=== PATIENT | male | born 1990 | race Caucasian/White ===

== ENCOUNTER 2021-02-17 08:47 | Outpatient (REF) | payer BC, SELFPAY ==
[2021-02-17 10:50] LABS: MANUAL DIFF FLAG NO
[2021-02-17 10:52] LABS: Basophils Absolute Auto 0.1 X10*3/uL (0.0-0.2); Basophils Percent Auto 1.4 % (0-2); Eosinophils Absolute Auto 0.2 X10*3/uL (0.0-0.4); Eosinophils Percent Auto 2.6 % (0-4); Hematocrit 44.5 % (42-52); Hemoglobin 15.2 g/dl (14.0-18.0); Imm Gran Abs Auto 0.01 X10*3/uL (0.00-0.03); Imm Gran Pct Auto 0.2 % (0.0-0.4); Lymphocytes Absolute Auto 1.6 X10*3/uL (1.2-4.9); Lymphocytes Percent Auto 28.9 % (20-40); Mean Corpuscular HGB Conc 34.2 g/dl (31.0-36.0); Mean Corpuscular Hemoglobin 31.7 pg (27.0-33.0); Mean Corpuscular Volume 92.9 fL (80-98); Mean Platelet Volume 10.6 fL (9.4-12.4); Monocytes Absolute Auto 0.6 X10*3/uL (0.1-1.2); Monocytes Percent Auto 9.9 % (2-11); Neutrophils Absolute Auto 3.2 X10*3/uL (2.0-8.3); Platelet Count 236 X10*3/uL (160-400); Red Blood Count 4.79 X10*6/uL (4.60-5.80); Red Cell Distribution Width 12.3 % (11.0-16.0); White Blood Count 5.7 X10*3/uL (4.8-10.8)
[2021-02-17 11:47] LABS: Alanine Aminotransferase 131 U/L (0-40); Albumin Level 4.4 g/dL (3.5-5.0); Alkaline Phosphatase 74 U/L (39-117); Anion Gap 11 (12-20); Aspartate Amino Transferase 68 U/L (5-37); Bilirubin Total 0.9 mg/dL (0.0-1.0); Blood Urea Nitrogen 16 mg/dL (9-16); Calcium 9.8 mg/dL (8.4-10.2); Carbon Dioxide 27 mmol/L (22-29); Chloride 106 mmol/L (96-108); Cholesterol 209 mg/dL; Estimated Glomerular Filt Rate > 60; Glucose Fasting 103 mg/dL (60-99); HDL Cholesterol 33 mg/dL; LDL Cholesterol Calculated 116 mg/dl; Potassium 4.6 mmol/L (3.3-5.1); Sodium 139 mmol/L (135-145); Total Protein 7.5 g/dL (6.5-8.0); Triglycerides 301 mg/dL
[2021-02-17 11:49] LABS: TSH reflex Free T4 1.09 uIU/mL (0.32-4.0)
== END 2021-02-17 08:48 | disposition home or self-care (01) ==
LOC: HO.WFDLDS 08:47
PROVIDERS: Visit Provider Family Medicine
DX: Z00.00 Encounter for general adult medical examination without abnormal findings (principal); F41.9 Anxiety disorder, unspecified; L98.9 Disorder of the skin and subcutaneous tissue, unspecified
CPT/HCPCS: 36415; 80053; 80061; 84443; 85025

== ENCOUNTER 2021-03-24 12:45 | Outpatient (REF) | payer BC, SELFPAY ==
[2021-03-24 12:50] VITALS: BMI 41.2
[2021-03-24 12:51] VITALS: BP 141/57; PULSE 71; RESP 16; TEMP 36.7; O2SAT 96
[2021-03-24 13:15] VITALS: BP 148/67; PULSE 70; RESP 16; O2SAT 98
--- NOTE | 2021-03-24 13:16 | P.OP_ITS ---
Operative Note Operative Note Date of Service: 03/24/21 Narrative: Preop diagnosis: Skin lesion, right buttock, likely fibroma Postop diagnosis: As above Procedure: Excision large skin lesion likely fibroma, from the right buttock under local anesthesia Surgeon: Girish Teague MD Patient is a 30-year-old male with a large mass on the buttock on the lower aspect. This measured about 3.5 cm tall and about 3.5 cm in diameter with a stalk. She understood technique of excision under local anesthesia. He was aware of the risks, benefits, and alternatives He was brought to the minor procedure room. He was placed in prone position. A surgical time-out was done. The area of the lesion was prepped and draped. Lidocaine 1% was used for local anesthesia. I made an incision around the base of this lesion using blade 15. And this was carried down through the full- thickness of the skin subcutaneous fat excise the entire lesions sharply. This was sent as specimen. I closed the incision full-thickness nylon 3-0 interrupted sutures. The incision was about 3.5 cm in length. He tolerated the procedure well. There were no complication noted. He was given wound care instructions. He will be seen in the office for removal sutures in about 2 weeks. Estimated blood loss was less than 1 cc.
--- NOTE | 2021-03-24 13:18 | P.BOP_ITS ---
Brief Operative Note Date of Service: 03/24/21 Pre-op diagnosis: Skin lesion, right buttock likely fibroma Post-op diagnosis: same Procedure: Excision of skin lesion right buttock likely fibroma under local anesthesia Surgeon: Girish Teague MD Anesthesia: local Was an Medical Lab Specialist used for this Procedure?: No Estimated blood loss (mL): 1 Pathology: other (Skin lesion likely fibroma) Condition: stable Disposition: other (Home)
== END 2021-03-24 12:46 | disposition home or self-care (01) ==
LOC: HO.MS 12:45
PROVIDERS: PCP Family Medicine; Visit Provider Surgery
PROC: (CPT 11404; principal; 2021-03-24 13:00)
DX: D17.1 Benign lipomatous neoplasm of skin and subcutaneous tissue of trunk (principal)
CPT/HCPCS: 11404; 88304; 88305

== ENCOUNTER → 2021-04-04 09:26 | Outpatient (BNVA) | payer BC, SELFPAY | PROVIDERS: PCP Family Medicine; Referring Provider Family Medicine; Visit Provider Surgery ==

== ENCOUNTER 2021-07-20 17:28 | Outpatient (REF) | payer BC, SELFPAY ==
--- NOTE | ~2021-07-20 | XR_ITS ---
EXAMINATION: XR CHEST CLINICAL INFORMATION: Acute bronchitis. COMPARISON: Chest x-ray April 12, 2016 TECHNIQUE: 2 views of the chest were obtained. FINDINGS: No significant abnormality is noted involving the heart, lungs, mediastinum, bony thorax or soft tissues. XR/XR chest 2V IMPRESSION: Unremarkable examination.
== END 2021-07-20 17:29 | disposition home or self-care (01) ==
LOC: HO.XRAY 17:28
PROVIDERS: PCP Family Medicine; Visit Provider Hospitalist
DX: J20.8 Acute bronchitis due to other specified organisms (principal)
CPT/HCPCS: 71046

== ENCOUNTER 2021-12-24 10:22 | Emergency (ER) | payer OTHER, BC, SELFPAY ==
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
[2021-12-24 10:38] VITALS: BP 126/67; PULSE 60; RESP 14; O2SAT 99; BMI 35.6
[2021-12-24 10:50] VITALS: BP 126/67; PULSE 60; RESP 14; O2SAT 99
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
[2021-12-24 12:00] VITALS: BP 125/45; PULSE 56; RESP 16; O2SAT 99
== END 2021-12-24 12:51 | disposition home or self-care (01) ==
PROVIDERS: Emergency Provider Emergency Medicine; PCP Family Medicine
DX: S13.4XXA Sprain of ligaments of cervical spine, initial encounter (principal); S39.012A Strain of muscle, fascia and tendon of lower back, initial encounter; S46.912A Strain of unspecified muscle, fascia and tendon at shoulder and upper arm level, left arm, initial encounter; V43.52XA Car driver injured in collision with other type car in traffic accident, initial encounter; Y93.9 Activity, unspecified; Y92.410 Unspecified street and highway as the place of occurrence of the external cause; Y99.9 Unspecified external cause status
CPT/HCPCS: 70450; 72072; 72125; 73030; 99284

== ENCOUNTER → 2022-12-11 14:37 | Outpatient (BNVA) | payer BC, SELFPAY | PROVIDERS: PCP Hospitalist; Visit Provider Nurse Practitioner Family | DX: Z13.89 Encounter for screening for other disorder (principal) ==

== ENCOUNTER 2023-03-29 12:41 | Outpatient (AMB) | payer BC, SELFPAY ==
--- NOTE | 2023-03-29 12:57 | A.OFFVIS_ITS ---
Intake Intake Visit Reasons: vasectomy Intake Note: Patient presents today for a follow-up on Vasectomy: Meds- None Allergies to Antibiotic- No Known Allergies Blood Thinner- None Feather Separator Required: No Accompanied by: Self / Same As Patient Allergies No Known Allergies Allergy (Verified 12/11/22 14:52) HPI HPI Comments History of Present Illness Details Yoan is a pleasant 32 year old male patient of Dr. Martinez. He presents to the office today for - vasectomy procedure Vasectomy procedure The patient presents for vasectomy consultation.? He is currently He has fathered -? 1 child The youngest child is - she is 6 months old His partner is aware and permissive for a vasectomy Current form of control is rhythm Current employment is [employer] The vasectomy may be complicated due to a history of no complicating issues and no known history of procedures in the past [facility] Medical History Fibroma Skin lesion of lower extremity Family History Father Colon polyps Social History Alcohol intake: never Patient Tobacco Use Status: Never used Tobacco Years Smoked: on occasion. 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 Preoperative and postoperative instructions were provided to the patient. The patient has transportation to home identified at the completion of the procedure. Anti-anxiolytic prescription medication had been taken after consent verification and all questions answered. Tylenol with Codeine pain medication was also provided. The penis was elevated using a rubber band that was attached to the patient's shirt. Both vasa were palpated through the skin using a 3 finger technique and the penoscrotal junction was prepped with Betadine. After Betadine application the left vas was elevated using a 3 finger grasping technique. 1% lidocaine was used to create a subdermal bubble. Approximately 2 minutes were allowed to for local anesthetic uptake. Further anesthetic was then advanced using the 25-gauge needle along the vasa in a proximal fashion. Using the sharp spreading instrument the scrotum was spread longitudinally in line with the vasa. The vasa was elevated from the scrotum using a ring clamp. Care was taken to elevate the superior portion of the vas. Using the sharp spreading instrument the vasal sheath was removed from the covering of this segment of the vas. A fresh knife blade was used to partially divide the vasal sheath and to strip the vasal sheath from the vasa. The vasa was grasped with an Addson forcep and elevated from the incision. The ring clamp was placed so it grasped the elevated vas. The vasal sheath was dissected from the vaas in a proximal and distal fashion. This allowed the blood vessels of the vasa to retract from the vasa. Using the battery-powered cautery a partial division was made in the proximal vas. The battery-powered cautery was used to cauterize the proximal end of the vas. This was then cut and allowed to retract into the vasal sheath. A 4.0 chromic was placed on the vasal sheath to create a fascial interposition. The distal portion of the vas was then cut in order to obtain a segment of vasa. The vasa were allowed to retract back into the scrotum. A small snap was then u sed to approximate the skin edges. A similar procedure was repeated on the right side. He tolerated the procedure well. Triple antibiotic was applied. A gauze was applied. An ice pack was applied to assist with minimizing swelling. Postoperative instructions were confirmed. He understands the need to continue to use control methods. A semen sample should be brought for inspection under the microscope in 10-12 weeks. CPT 60689 94011 - Vasectomy Assessment & Plan Assessment & Plan (1) Anxiety about health: Code(s): F41.8 - Other specified anxiety disorders Plan Three month follow-up semen Coding Level of Care Code Procedure Only Diagnoses Anxiety about health F41.8 CPT Codes Office Procedure - CPT: 91644 - Vasectomy ([id number])
== END 2023-03-29 14:30 | disposition home or self-care (01) ==
PROVIDERS: PCP Hospitalist; Visit Provider Urology
DX: Z30.2 Encounter for sterilization (principal); F41.8 Other specified anxiety disorders
CPT/HCPCS: 55250

== ENCOUNTER → 2023-03-29 12:41 | Outpatient (BNVA) | payer BC, SELFPAY | PROVIDERS: PCP Hospitalist; Visit Provider Urology | DX: Z30.2 Encounter for sterilization (principal); F41.8 Other specified anxiety disorders | CPT/HCPCS: 55250 ==

== ENCOUNTER 2023-07-31 14:26 | Outpatient (AMB) | payer BC, SELFPAY ==
--- NOTE | 2023-07-31 14:37 | A.OFFVIS_ITS ---
Intake Intake Visit Reasons: 3m/seman analysis Intake Note: Patient is Present for Follow Up Semen analysis Allergies No Known Allergies Allergy (Verified 12/11/22 14:52) HPI HPI Comments History of Present Illness Details Yoan is a pleasant 32 year old male patient of Dr. Martinez. He presents to the office today for - vasectomy follow-up No sperm seen on high-powered field examination Minimal issues following procedure Effective control established Vasectomy follow-up The patient presents for vasectomy follow-up.? He is currently He has fathered -? 1 child The youngest child is - she is 6 months old His partner is aware and permissive for a vasectomy Current form of control is rhythm Current employment is [employer] The vasectomy may be complicated due to a history of no complicating issues and no known history of procedures in the past [facility] Medical History Fibroma Skin lesion of lower extremity Family History Father Colon polyps Alcohol intake: never Patient Tobacco Use Status: Never used Tobacco Years Smoked: on occasion. 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 Review of Systems Const Denies chills and Denies fever(s) Card Reports no additional complaints and Denies syncope Resp Denies cough GI Denies abdominal pain and Denies heartburn Reports as per HPI and Denies change in libido Neuro Denies syncope Psych Denies change in libido Endo Denies change in libido Physical Exam Const General: cooperative, healthy appearing, comfortable and no acute distress Orientation/consciousness: patient oriented x3 HEENT Face and sinus: Yes normal facial exam Mouth: moist mucous membranes Neck Neck: Yes normal visual inspection, Yes full ROM and Yes trachea midline Chest Chest palpation & inspection: normal inspection of the chest Resp Effort & Inspection: normal respiratory effort, able to speak in complete sentences and no respiratory distress GI Inspection: Yes normal to inspection Back/Spine/Pelvis Cervical Spine: normal cervical lordosis Thoracic/Lumbar Spine: thoracic and lumbar spine normal to inspection Skin General skin exam: no rashes or lesions noted Neuro General: patient oriented x3, gait normal, tone normal and moves all extremities Extrem General: Yes normal to inspection and Yes capillary refill normal Assessment & Plan Assessment & Plan (1) Anxiety about health: Code(s): F41.8 - Other specified anxiety disorders Plan P.r.n. follow-up Patient Instructions: Imaging studies, laboratory and physical exam results were discussed and reviewed in detail. No major barriers to patient understanding were identified. An opportunity to ask questions regarding the treatment plan was provided. All questions were answered. The patient expressed understanding and agreement with the above treatment plan. The patient is aware they should contact our office by phone for worsening of their current condition or the appearance of new urologic symptoms. Compliance is encouraged with any medications and followup testing that is ordered. It is a privilege to participate in the urologic care of your patient. If you have any questions or concerns regarding treatment for the above conditions, or other urologic issues, please do not hesitate to contact me. The office telephone contact is [phone]. This note is constructed using voice recognition software. While every effort has been made to ensure accuracy hand scraper errors may have been included. Yours sincerely, Dr Anibal Birmingham MD, [facility] - Urology Providers of Expert, Compassionate Care for the Genitourinary System Coding Level of Care Code Est Pt Level 3 (09152) Diagnoses Anxiety about health F41.8
== END 2023-07-31 14:50 | disposition home or self-care (01) ==
PROVIDERS: PCP Hospitalist; Visit Provider Urology
DX: F41.8 Other specified anxiety disorders (principal)
CPT/HCPCS: 99213

== ENCOUNTER → 2023-07-31 14:26 | Outpatient (BNVA) | payer BC, SELFPAY | PROVIDERS: PCP Hospitalist; Visit Provider Urology ==

== ENCOUNTER 2024-07-03 11:23 | Outpatient (AMB) | payer BC, SELFPAY ==
--- NOTE | 2024-07-03 11:36 | MHC.PC.OV ---
Vital Signs 07/03/24 11:40 Height 6 ft 3 in Weight 331 lb BMI 41.4 BP 143/82 H Blood Pressure Location Rt brachial Position Sitting Respiration 16 Pulse 89 Pulse Source Pulse Oximeter Temp 99.0 F Temp Source Temporal Artery Scan Pulse Oximetry (%) 97 Oxygen Delivery Method Room Air Intake Visit Reasons: LOW TESTOSTERONE SYMPTOMS Intake Note: low testosterone symptoms low energy and sex drive gaining weight and not motived to go to the gym anymore pt did do a home test came back as 300 for testosterone levels Allergies No Known Allergies Allergy (Verified 07/03/24 11:37) Tobacco use date assessed: 11/29/22 HPI LOW TESTOSTERONE SYMPTOMS HPI Details 33 y/o male presents today with complaints of fatigue, low sex drive, weight gain. Notes he had tested in the 300s for testosterone levels using a home test. Notes loss of motivation towards eating a healthier diet and going to the gym. He reports back pain that wraps around his buttocks. [facility] Medical History Fibroma Skin lesion of lower extremity Family History Father Colon polyps Social History Alcohol intake: never Patient Tobacco Use Status: Never used Tobacco Years Smoked: on occasion. Current occupational status: employed Current occupation: [employer] Questionnaire PHQ-9 Over the last 2 weeks, how often have you been bothered by any of the following problems? 1. Little interest or pleasure in doing things: not at all 2. Feeling down, depressed, or hopeless: not at all 3. Trouble falling or staying asleep, or sleeping too much: not at all 4. Feeling tired or having little energy: more than half the days 5. Poor appetite or overeating: several days 6. Feeling bad about yourself - or that you are a failure or have let yourself or your family down: several days 7. Trouble concentrating on things, such as reading the newspaper or watching television: not at all 8. Moving or speaking so slowly that other people could have noticed. Or the opposite - being so fidgety or restless that you have been moving around a lot more than usual: not at all 9. Thoughts that you would be better off or of hurting yourself in some way: not at all Total score: 4 Depression Screening Interpretation: Negative Depression Screening Done: Yes 93617 - PHQ-9 Billing: Yes Source: Developed by Drs. Bhaskar Ayon, Lesa Fisher, Rashel Field and colleagues, with an educational neal from [employer]. Thrive Questionnaire I am a: Patient What is your living situation today?: I have a steady place to live Within the past 12 months, did the food you bought not last and you didn't have the money to get more?: Never true Within the past 12 months, did you worry whether your food would run out before you got money to buy more?: Never true Do you have trouble paying for medicines?: No Do you have trouble getting transportation to medical appointments?: No Do you have trouble paying your heating and electricity bill?: No Do you have trouble taking care of your child, family member or friend?: No Do you have trouble with day-to-day activities such as bathing, preparing meals, shopping, managing finances, etc.?: No Are you currently unemployed and looking for a job?: No Are you interested in more education?: No Please select the resources that you would like help with: None Currently or been in a relationship where the following occur: No concerns reported THRIVE Score: 0 AUDIT C Alcohol Use Questionnaire (AUDIT-C) 1. How often do you have a drink containing alcohol?: 2-4 times a month 2. How many drinks containing alcohol do you have on a typical day when you are drinking?: 7 to 9 3. How often do you have six or more drinks on one occasion?: Less than monthly Total Score: 6 XIOMARA-7 AMB Questionnaire XIOMARA-7 Feeling nervous, anxious, or on edge: 2 = More than half the days Not being able to stop or control worryin = Several days Worrying too much about different things: 1 = Several days Trouble relaxin = Several days Being so restless that it is hard to sit still: 0 = Not at all Becoming easily annoyed or irritable: 0 = Not at all Feeling afraid as if something awful might happen: 1 = Several days Total XIOMARA-7 score (0-4 normal; 5-9 mild; 10-14 moderate; 15-21 severe): 6 Source: Developed by Drs. Bhaskar Ayon, Lesa Fisher, Rashel Field and colleagues, with an educational neal from [employer]. XIOMARA-7 Assessment Billing XIOMARA-7 Assessment Tool: XIOMARA-7 Assessment 91444 Physical exam (Primary Care) Vital Signs: Last Vital Signs Temp 99.0 F 07/03/24 11:40 Pulse 89 07/03/24 11:40 Resp 16 07/03/24 11:40 BP 143/82 H 07/03/24 11:40 Pulse Ox 97 07/03/24 11:40 Oxygen Delivery Method Room Air 07/03/24 11:40 BMI result Body Mass Index 41.4 Tobacco/Smoking Status: Tobacco use Status Tobacco use date assessed 11/29/22 07/03/24 11:48 Patient Tobacco Use Status Never used Tobacco 07/03/24 11:48 PHQ-9: PHQ-9 Score PHQ-9: Total score 4 07/03/24 11:48 Depression Screening Interpretation: Negative Currently or been in a relationship where the following occur: No concerns reported Coding Level of Care Code Est Pt Level 4 (31791) Diagnoses Fatigue R53.83 Hypersomnolence G47.10 Back pain M54.9 Additional Codes XIOMARA-7 Assessment Billing - XIOMARA-7 Assessment Tool: XIOMARA-7 Assessment 78336 ([id number]) Assessment & Plan Assessment & Plan (1) Fatigue: Code(s): R53.83 - Other fatigue Category: Medical Plan: Fatigue,?hypersomnolence,?poor?motivation, oversleeping Will?check?labs?including?thyroid,?testosterone?and?CBC Will?also?refer?to?Sleep?Medicine?for?sleep?study Follow-up?to?discuss?next?steps?in?4-6?weeks (2) Hypersomnolence: Code(s): G47.10 - Hypersomnia, unspecified Category: Medical Plan: As?above,?referred?to?Sleep?Med (3) Back pain: Code(s): M54.9 - Dorsalgia, unspecified Category: Medical Plan: Back?discomfort?that?radiates?into?buttocks?and?also?around?lower?abdomen?at?hypogastric?region Encouraged?good?body?mechanics,?ice/heat?and?NSAIDs?as?tolerated If?worsening?or?not?improving?he?will?let?me?know?and?would?consider?imaging,?physical?therapy?and?or?referral Plan Screening?equivocal?for?anxiety/depression?and?his?symptoms?can?be?due?to?mood?disorder.??We?can?discuss?this?as?well?at?next?visit?if?no?other?cause?is?found Orders: Orders Comprehensive Met. Panel Today R53.83 - Other fatigue TSH reflex Free T4 Today R53.83 - Other fatigue, Z00.00 - Encounter for general adult medical examination without abnormal findings UA and rflx microscopic Today R53.83 - Other fatigue, Z00.00 - Encounter for general adult medical examination without abnormal findings Complete Blood Count Auto Diff Today R53.83 - Other fatigue, Z00.00 - Encounter for general adult medical examination without abnormal findings Testosterone, Free/Total Today R53.83 - Other fatigue Referrals Sleep Medicine Referral G47.10 - Hypersomnia, unspecified
[2024-07-03 11:40] VITALS: BP 143/82; PULSE 89; RESP 16; TEMP 37.2; O2SAT 97; BMI 41.4
== END 2024-07-03 12:26 | disposition home or self-care (01) ==
PROVIDERS: PCP Family Medicine; Visit Provider Family Medicine
DX: R53.83 Other fatigue (principal); G47.10 Hypersomnia, unspecified; M54.9 Dorsalgia, unspecified

== ENCOUNTER → 2024-07-03 11:23 | Outpatient (BNVA) | payer BC, SELFPAY | PROVIDERS: PCP Hospitalist; Visit Provider Family Medicine | DX: R53.83 Other fatigue (principal); G47.10 Hypersomnia, unspecified; M54.9 Dorsalgia, unspecified | CPT/HCPCS: 96127 ==

== ENCOUNTER 2024-07-28 08:15 | Outpatient (REF) | payer BC, SELFPAY ==
[2024-07-28 11:28] LABS: MANUAL DIFF FLAG NO
[2024-07-28 11:56] LABS: Basophils Absolute Auto 0.1 X10*3/uL (0.0-0.2); Basophils Percent Auto 1.6 % (0-2); Eosinophils Absolute Auto 0.3 X10*3/uL (0.0-0.4); Eosinophils Percent Auto 4.5 % (0-4); Hematocrit 46.1 % (42.0-52.0); Hemoglobin 15.7 g/dl (14.0-18.0); Imm Gran Abs Auto 0.02 X10*3/uL (0.00-0.03); Imm Gran Pct Auto 0.4 % (0.0-0.4); Lymphocytes Absolute Auto 1.2 X10*3/uL (1.2-4.9); Mean Corpuscular HGB Conc 34.1 g/dl (31.0-36.0); Mean Corpuscular Hemoglobin 31.3 pg (27.0-33.0); Mean Corpuscular Volume 91.8 fL (80.0-98.0); Mean Platelet Volume 11.5 fL (9.4-12.4); Monocytes Absolute Auto 0.6 X10*3/uL (0.1-1.2); Monocytes Percent Auto 10.1 % (2-11); Neutrophils Absolute Auto 3.5 x10*3/uL (2.0-8.3); Neutrophils Percent Auto 62.4 % (45-73); Platelet Count 246 X10*3/uL (160-400); Red Blood Count 5.02 X10*6/uL (4.60-5.80); Red Cell Distribution Width 12.4 % (11.0-16.0); White Blood Count 5.5 X10*3/uL (4.8-10.8)
[2024-07-28 12:23] LABS: Alanine Aminotransferase 98 U/L (0-40); Albumin Level 4.3 g/dL (3.5-5.0); Alkaline Phosphatase 64 U/L (39-117); Anion Gap 12 (12-20); Aspartate Amino Transferase 47 U/L (5-37); Bilirubin Total 0.8 mg/dL (0.0-1.0); Blood Urea Nitrogen 15 mg/dL (9-16); Calcium 9.2 mg/dL (8.4-10.2); Carbon Dioxide 25 mmol/L (22-29); Chloride 107 mmol/L (96-108); Estimated Glomerular Filt Rate > 60; Glucose Random 99 mg/dL (60-115); Potassium 4.1 mmol/L (3.3-5.1); Sodium 140 mmol/L (135-145); Total Protein 7.6 g/dL (6.5-8.0)
[2024-07-28 12:49] LABS: TSH reflex Free T4 1.73 uIU/mL (0.32-4.0)
[2024-07-28 14:15] LABS: Appearance Urine Turbid; Color Urine Dark Yellow; Glucose Urine UA Negative (Negative); Leukocyte Esterase Urine Negative (Negative); Nitrite Urine Negative (Negative); PH 5.5 (5.0-9.0); Specific Gravity - Urine >= 1.030 (1.005-1.025); Urine Blood Negative (Negative); Urine Ketones Negative (Negative); Urine Protein Trace mg/dL (Neg-Trace)
[2024-08-01 18:18] LABS: Testosterone, Free 77.7 pg/mL (35.0-155.0); Testosterone, Total 444 ng/dL (250-1100)
== END 2024-07-28 08:16 | disposition home or self-care (01) ==
LOC: HO.WFDLDS 08:15
PROVIDERS: Visit Provider Family Medicine
DX: Z00.00 Encounter for general adult medical examination without abnormal findings (principal); R53.83 Other fatigue
CPT/HCPCS: 36415; 80053; 81003; 84402; 84403; 84443; 85025

== ENCOUNTER 2024-10-28 15:49 | Outpatient (AMB) | payer BC, SELFPAY ==
--- NOTE | 2024-10-28 16:10 | A.OFFPC_ITS ---
Vital Signs 10/28/24 16:15 Height 6 ft 3 in Weight 293 lb BMI 36.6 BP 110/68 Blood Pressure Location Lt brachial Position Sitting Respiration 14 Pulse 95 Pulse Source Pulse Oximeter Temp 98.8 F Temp Source Oral Pulse Oximetry (%) 95 Oxygen Delivery Method Room Air Intake Visit Reasons: Annual PE Intake Note: annual and pt would like to discuss a cough he has had for a few years with no resolution Manager Hospital Required: No Allergies No Known Allergies Allergy (Verified 10/28/24 16:11) Medication List - Last Reconciled 10/28/24 by Fabiano Becker MD albuterol sulfate 90 mcg/actuation (Proair Digihaler) 1 inh inhalation Q4-6H PRN 30 days omeprazole 40 mg PO DAILY 30 days Tobacco use date assessed: 10/28/24 Dental Screening Dental Screen Date: 10/28/24 Did you have a dental visit in the last 12 months?: Yes Did you have a dental problem in the last 6 months where you did not have access to dental care?: No Was dental information given to patient?: No HPI Annual PE HPI Details 34 y/o male presents for a CPE with f/u labs and health maintenance. Labs drawn 07/28/24. Reviewed labs with pt. Elevated liver enzymes - AST 47, ALT 98. Has had complaints of fatigue. Has complaints of a dry cough, 6 to 7 years. PFSH Medical History Fibroma Skin lesion of lower extremity Family History Father Colon polyps Social History Housing: House Alcohol intake: never Patient Tobacco Use Status: Never used Tobacco Years Smoked: on occasion. 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 1. Little interest or pleasure in doing things: not at all 2. Feeling down, depressed, or hopeless: not at all 3. Trouble falling or staying asleep, or sleeping too much: not at all 4. Feeling tired or having little energy: nearly every day 5. Poor appetite or overeating: not at all 6. Feeling bad about yourself - or that you are a failure or have let yourself or your family down: not at all 7. Trouble concentrating on things, such as reading the newspaper or watching television: not at all 8. Moving or speaking so slowly that other people could have noticed. Or the opposite - being so fidgety or restless that you have been moving around a lot more than usual: not at all 9. Thoughts that you would be better off or of hurting yourself in some way: not at all Total score: 3 Depression Screening Interpretation: Negative Depression Screening Done: Yes 24351 - PHQ-9 Billing: Yes Source: Developed by Drs. Bhaskar Ayon, Lesa Fisher, Rashel Field and colleagues, with an educational neal from [employer]. Thrive Questionnaire Date Thrive assessed: 10/28/24 I am a: Patient What is your living situation today?: I have a steady place to live Within the past 12 months, did the food you bought not last and you didn't have the money to get more?: Never true Within the past 12 months, did you worry whether your food would run out before you got money to buy more?: Never true Do you have trouble paying for medicines?: No Do you have trouble getting transportation to medical appointments?: No Do you have trouble paying your heating and electricity bill?: No Do you have trouble taking care of your child, family member or friend?: No Do you have trouble with day-to-day activities such as bathing, preparing meals, shopping, managing finances, etc.?: No Are you currently unemployed and looking for a job?: No Are you interested in more education?: No Please select the resources that you would like help with: None Currently or been in a relationship where the following occur: No concerns repor jean THRIVE Score: 0 AUDIT C Alcohol Use Questionnaire (AUDIT-C) 1. How often do you have a drink containing alcohol?: Monthly or less 2. How many drinks containing alcohol do you have on a typical day when you are drinking?: 3 or 4 3. How often do you have six or more drinks on one occasion?: Less than monthly Total Score: 3 Score Reviewed/Action Taken: Yes XIOMARA-7 AMB Questionnaire XIOMARA-7 Date XIOMARA - 7 assessed: 10/28/24 Feeling nervous, anxious, or on edge: 1 = Several days Not being able to stop or control worryin = Several days Worrying too much about different things: 1 = Several days Trouble relaxin = Several days Being so restless that it is hard to sit still: 0 = Not at all Becoming easily annoyed or irritable: 1 = Several days Feeling afraid as if something awful might happen: 0 = Not at all Total XIOMARA-7 score (0-4 normal; 5-9 mild; 10-14 moderate; 15-21 severe): 5 Source: Developed by Drs. Bhaskar Ayon, Lesa Fisher, Rashel Field and colleagues, with an educational neal from [employer]. XIOMARA-7 Assessment Billing XIOMARA-7 Assessment Tool: XIOMARA-7 Assessment 77825 Review of Systems Const Reports fatigue, Denies headache(s) and Denies weakness Eyes Denies change in vision ENT Denies dizziness, Denies headache(s), Denies hearing loss, Denies nasal congestion, Denies sinus pain, Denies sinus pressure and Denies sore throat Card Denies chest pain, Denies lightheadedness, Denies dyspnea and Denies other (palpitations) Resp Reports cough, Denies dyspnea and Denies wheezing GI Denies abdominal pain, Denies melena, Denies hematochezia, Denies change in bowel habits, Denies dyspepsia and Denies nausea Denies hematuria and Denies dysuria Musc Denies abnormal gait, Denies myalgias, Denies arthralgias, Denies numbness and Denies tingling Skin/Breast Denies rash, Denies unusual bruising and Denies wounds Neuro Denies abnormal gait, Denies dizziness, Denies headache(s), Denies memory loss, Denies numbness, Denies Sensory deficit (Neuro), Denies tingling and Denies weakness Psych Denies anxiety, Denies depression and Denies memory loss Endo Reports fatigue Freddy/Lymph Denies easy bleeding and Denies easy bruising Aller/Immun Denies wheezing Physical exam (Primary Care) Vital Signs: Last Vital Signs Temp 98.8 F 10/28/24 16:15 Pulse 95 10/28/24 16:15 Resp 14 10/28/24 16:15 BP 110/68 10/28/24 16:15 Pulse Ox 95 10/28/24 16:15 Oxygen Delivery Method Room Air 10/28/24 16:15 BMI result Body Mass Index 36.6 Tobacco/Smoking Status: Tobacco use Status Tobacco use date assessed 10/28/24 10/28/24 16:20 Patient Tobacco Use Status Never used Tobacco 10/28/24 16:11 e-Cigarette/Vaping Use Never Used 10/28/24 16:20 PHQ-9: PHQ-9 Score PHQ-9: Total score 3 10/28/24 16:54 Depression Screening Interpretation: Negative Thrive Assessment: Date of Thrive Assessment Date Thrive assessed 10/28/24 10/28/24 16:20 Currently or been in a relationship where the following occur: No concerns reported Const General: no acute distress, well developed, alert and awake Nutritional Appearance: well nourished Orientation/consciousness: patient oriented x3 HENMT Head: Yes normocephalic and Yes atraumatic Ears: hearing grossly normal bilaterally and TM's normal bilaterally General nose exam: Normal external nose present and Normal nares present Mouth: Normal oral and palatal mucosa present and moist mucous membranes Teeth and gingiva: dentition normal Throat: Yes posterior oropharynx normal Eyes General: appearance normal, both eyes and all related structures Pupils: Equal, round and reactive pupils present and Pupil accommodation reflex normal EOM: EOMs intact bilaterally Neck Neck: Yes normal visual inspection, Yes no lymphadenopathy and Yes trachea midline Thyroid: Thyroid normal Carotids: no bruits Lymphatic: no lymphadenopathy noted Chest Chest palpation & inspection: normal inspection of the chest Resp Effort & Inspection: normal respiratory effort Auscultation: clear to auscultation bilaterally Cardio Rate: regular rate Rhythm: regular rhythm Heart sounds: S1 normal heart sound present, S2 normal heart sound present, no gallops, no murmurs and no rubs Bruits: no abdominal aortic bruits and no carotid bruits GI Palpation (GI): No Abdominal aortic bruit present, Soft to palpation, nontender, No hepatosplenomegaly present and No Rebound tenderness present Auscultation: normal bowel sounds General: Yes no CVA tenderness Back/Spine/Pelvis Back: no CVA tenderness Cervical Spine: cervical ROM normal and No Cervical spine tenderness Thoracic/Lumbar Spine: thoraco-lumbar ROM normal, No pain with thoraco-lumbar ROM, No thoracic spinal tenderness and No lumbar spinal tenderness Skin Lesions: no lesions Rashes: no rashes Trauma: no lacerations or abrasions Wounds: no wounds Nails: normal Neuro General: patient oriented x3 Cranial nerves: Yes Equal, round and reactive pupils present Cognition (Neuro): normal cognition Gait exam (Neuro): Normal gait present Motor exam (neuro): 5/5 motor strength present throughout Sensory Exam: No Sensory deficit (Neuro) Deep tendon reflexes (DTR's): Right patellar reflex intensity grade: 2+ and Left patellar reflex intensity grade: 2+ Extrem General: Yes normal to inspection and No edema Psych Appearance: grossly normal Affect: normal affect Attitude: cooperative Thought process: Normal thought process present Coding Level of Care Code Est Pt Level 3 (01450) Est Pt Prev Care 18-39y(93303) Diagnoses Adult general medical exam Z00.00 Elevated liver enzymes R74.8 Fatigue R53.83 Cough R05.9 Additional Codes XIOMARA-7 Assessment Billing - XIOMARA-7 Assessment Tool: XIOMARA-7 Assessment 75552 ([id number]) PHQ-9 - 75918 - PHQ-9 Billing: Yes ([id number]) Assessment & Plan Assessment & Plan (1) Adult general medical exam: Code(s): Z00.00 - Encounter for general adult medical examination without abnormal findings Category: Medical Plan: 34-year-old?male?presents?for?complete?physical?exam (2) Elevated liver enzymes: Code(s): R74.8 - Abnormal levels of other serum enzymes Category: Medical Plan: Ongoing?elevated?liver?enzymes. Encouraged?weight?loss We?will?continue?to?monitor?periodically (3) Fatigue: Code(s): R53.83 - Other fatigue Category: Medical Plan: Ongoing?fatigue. CBC,?thyroid?hormone?levels?and?testosterone?levels?are?normal Had?referred?to?Sleep?Medicine.??Patient?says he? was?not?able?to?follow?through?on?the?appointment Will?ask?the?office?to?get?him?rescheduled. (4) Cough: Code(s): R05.9 - Cough, unspecified Category: Medical Plan: Patient?notes?longstanding?cough?for?years He?says?this?has?been?worked?up?previously Unclear?underlying?cause Possible?cough?variant?asthma, possible?GERD?with?microaspiration, possible?allergy?or?irritant. He?has?used?an?inhaler?in?the?past?and?I?will?renew?this?for?now.??May?need ?PFTs?and?or?referral?to?Pulmonary?Medicine He?will?try?empiric?omeprazole Will?get?a?chest?x-ray Follow-up?in?about?a?month?to?determine?next?steps Orders: Orders XR chest 2V Today R05.9 - Cough, unspecified Medications: New albuterol sulfate 90 mcg/actuation (Proair Digihaler) 1 inh inhalation Q4-6H 30 days PRN 1 ea 1RF shortness of breath or wheezing omeprazole 40 mg PO DAILY 30 days 30 caps 1RF
[2024-10-28 16:15] VITALS: BP 110/68; PULSE 95; RESP 14; TEMP 37.1; O2SAT 95; BMI 36.6
== END 2024-10-28 17:09 | disposition home or self-care (01) ==
PROVIDERS: PCP Family Medicine; Visit Provider Family Medicine
DX: Z00.00 Encounter for general adult medical examination without abnormal findings (principal); R74.8 Abnormal levels of other serum enzymes; R53.83 Other fatigue; R05.9 Cough, unspecified

== ENCOUNTER → 2024-10-28 15:49 | Outpatient (BNVA) | payer BC, SELFPAY | PROVIDERS: PCP Hospitalist; Visit Provider Family Medicine | DX: Z00.00 Encounter for general adult medical examination without abnormal findings (principal); R74.8 Abnormal levels of other serum enzymes; R53.83 Other fatigue; R05.9 Cough, unspecified | CPT/HCPCS: 96127 ==

== ENCOUNTER 2024-11-11 15:30 | Outpatient (REF) | payer BC, SELFPAY ==
--- NOTE | ~2024-11-11 | XR_ITS ---
EXAMINATION: XR CHEST CLINICAL INFORMATION: R05.9 - Cough, unspecified COMPARISON: July 20, 2021. TECHNIQUE: 2 views of the chest were obtained. FINDINGS: Pulmonary reticular nodular pattern opacities. No pleural effusion. No pneumothorax. No hyperinflation. Cardiomediastinal silhouette size is normal. Osseous structures are intact. XR/XR chest 2V IMPRESSION: Pulmonary reticular nodular pattern. Differential diagnostic considerations include: Pulmonary sarcoidosis versus tuberculosis versus hypersensitivity pneumonitis versus lymphocytic interstitial pneumonitis versus pulmonary Langerhans' cells histiocytosis versus drug-induced lung disease versus neoplasm Electronically signed by: Morales Roberson MD 11/14/2024 08:01 AM [facility] [place]
== END 2024-11-11 15:31 | disposition home or self-care (01) ==
LOC: HO.HMGCX 15:30
PROVIDERS: PCP Family Medicine; Visit Provider Family Medicine
DX: R05.9 Cough, unspecified (principal)
CPT/HCPCS: 71046

== ENCOUNTER → 2024-11-11 15:33 | Outpatient (BNV) | payer BC, SELFPAY | PROVIDERS: PCP Family Medicine; Visit Provider Radiology Diagnostic Radiology | DX: R05.9 Cough, unspecified (principal) | CPT/HCPCS: 71046 ==

== ENCOUNTER 2024-12-10 09:28 | Outpatient (AMB) | payer BC, SELFPAY ==
--- NOTE | 2024-12-10 08:50 | A.OFFVIS_ITS ---
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 He was referred by PCP for chronic cough. He reports chronic dry cough for the last 6-7 years, per referral previously worked out without significant findings. He denies any known triggers or associated dyspnea, chest tightness or wheezing. PCP questioning cough variant?asthma, possible?GERD?with?microaspiration, or allergic contribution. He reports symptoms are triggered by cold weather and hot humid weather which have been progressively worsening over the last few years. He was recently started on Omeprazole with no change in symptoms, currently denies reflux symptoms. He was also started on Arnuity, initially thought to have improvements however dry cough persists with intermittent wheezing. Denies dyspnea or chest tightness. He also was prescribed albuterol MDI however reports minimal improvement with use. Recent CXR revealed pulmonary reticular nodular pattern opacities which could be suggestive of sarcoidosis, hypersensitivity pneumonitis or TB per radiologist report. PCP sent for GLORIA levels as well as TB, however patient has not had labs drawn. He denies h/o recurrent respiratory infections. He denies any symptoms of autoimmune conditions. He endorses possible seasonal allergies, no recent allergy testing. Has a dog at home. 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 He denies any pertinent family history. [facility] Medical History Fibroma Skin lesion of lower extremity Family History Father Colon polyps Social History Housing: House Alcohol intake: never Patient Tobacco Use Status: Never used Tobacco Years Smoked: on occasion. 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 life consultant Cognitive needs: No Hearing needs: No Vision needs: No Review of Systems Const Denies chills, Denies excessive sweating, Denies fever(s), Denies headache(s) and Denies night sweats Eyes Denies dry eyes, Denies irritation and Denies itchy eyes ENT Reports Normal hearing present, Denies headache(s), Denies nasal congestion, Denies nasal discharge, Denies post nasal drip and Denies sore throat Card Denies chest pain, Denies chest pain at rest, Denies chest pain with activity, Denies claudication, Denies leg edema, Denies orthopnea and Denies paroxysmal nocturnal dyspnea Resp Denies chest congestion, Denies excessive phlegm production, Denies pain on inspiration, Denies pain with cough and Denies stridor Musc Denies myalgias Neuro Reports Normal hearing present and Denies headache(s) Endo Denies excessive sweating Freddy/Lymph Denies lymphadenopathy Aller/Immun Denies itchy eyes and Denies seasonal rhinorrhea Physical Exam Vital Signs: Last Vital Signs Pulse 84 12/10/24 09:31 BP 110/64 12/10/24 09:31 Pulse Ox 97 12/10/24 09:31 Oxygen Delivery Method Room Air 12/10/24 09:31 BMI result Body Mass Index 34.7 Const General: cooperative, healthy appearing, comfortable, no acute distress, well developed and alert Orientation/consciousness: patient oriented x3 Limitations: no limitations HEENT Head: Yes normal to inspection, Yes normocephalic and Yes atraumatic Ears: hearing grossly normal bilaterally and external ears normal Eyes General: appearance normal, both eyes and all related structures Eyelids: Yes eyelids normal Sclerae: sclerae normal EOM: EOMs intact bilaterally Neck Neck: Yes normal visual inspection and Yes no lymphadenopathy Lymphatic: no lymphadenopathy noted Chest Chest palpation & inspection: normal inspection of the chest Resp Effort & Inspection: normal respiratory effort, able to speak in complete sentences, no audible wheezes, no cough, no stridor, not tachypneic, no tripod positioning and no use of accessory muscles Auscultation: clear to auscultation bilaterally Cardio Jugular venous distension: no JVD Rate: regular rate Rhythm: regular rhythm Skin Other: warm, dry General skin exam: no rashes or lesions noted Neuro General: patient oriented x3 Cranial nerves: Yes Normal hearing present Cognition (Neuro): normal cognition Gait exam (Neuro): Normal gait present Extrem General: Yes normal to inspection, Yes capillary refill normal, Yes no clubbing, cyanosis or edema and Yes no pedal edema Psych Appearance: grossly normal and well kempt Speech and movement: Normal speech and movement present and Clear speech present Affect: normal affect Attitude: cooperative Thought process: Normal thought process present Thought content: Normal thought content present Insight: Good insight present (Psych) Judgement: Good judgement present (Psych) Results Reviewed Results Reviewed: [facility] [address] [place] [address] [place] [id number] XRay Report Signed Patient: Yoan Cox MR#: [id number] : 1990 Acct:[id number] Age/Sex: 34 / M ADM Date: 11/11/24 [facility] Attending Dr: Fabiano Becker MD Ordering Physician: Fabiano Becker MD Date of Service: 11/11/24 Procedure(s): XR chest 2V Accession Number(s): [id number] cc: Fabiano Becker MD~ EXAMINATION: XR CHEST CLINICAL INFORMATION: R05.9 - Cough, unspecified COMPARISON: July 20, 2021. TECHNIQUE: 2 views of the chest were obtained. FINDINGS: Pulmonary reticular nodular pattern opacities. No pleural effusion. No pneumothorax. No hyperinflation. Cardiomediastinal silhouette size is normal. Osseous structures are intact. XR/XR chest 2V IMPRESSION: Pulmonary reticular nodular pattern. 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 Will send for PFT to assess severity of obstructive defect. Will send for RAST to assess for an alelrgic component. Will also send for chest CT given abnormalities on CXR of pulmonary reticular nodular pattern. Encouraged patient to obtain labs PCP ordered which he agreed to do today. All questions were answered and patient is in agreement of plan. Will follow up in 6-8 weeks or sooner if needed. Orders: Orders PFT pulmonary function test Today J45.909 - Unspecified asthma, uncomplicated Immunoglobulin E Today Z91.09 - Other allergy status, other than to drugs and biological substances Resp Allergy Profile Region I Today Z91.09 - Other allergy status, other than to drugs and biological substances CT chest wo IV con Today R93.89 - Abnormal findings on diagnostic imaging of other specified body structures Medications: New fluticasone furoate-vilanterol 200-25 mcg/dose (Breo Ellipta) 1 inh inhalation DAILY 60 ea 3RF Discontinued fluticasone furoate 100 mcg/actuation (Arnuity Ellipta) Discontinued Reason: Patient Completed Course 1 inh inhalation DAILY 30 days 30 ea 3RF Coding Level of Care Code New Pt Level 4 (65287) Diagnoses Asthma J45.909 Environmental allergies Z91.09 Cough R05.9 Abnormal chest xray R93.89
[2024-12-10 09:31] VITALS: BP 110/64; PULSE 84; O2SAT 97; BMI 34.7
== END 2024-12-10 09:58 | disposition home or self-care (01) ==
LOC: HO.HPSW 09:29
PROVIDERS: PCP Family Medicine; Referring Provider Family Medicine; Visit Provider Nurse Practitioner Family
DX: J45.909 Unspecified asthma, uncomplicated (principal); Z91.09 Other allergy status, other than to drugs and biological substances; R05.9 Cough, unspecified; R93.89 Abnormal findings on diagnostic imaging of other specified body structures
CPT/HCPCS: 99204

== ENCOUNTER 2024-12-10 10:25 | Outpatient (REF) | payer BC, SELFPAY ==
[2024-12-10 14:12] LABS: MANUAL DIFF FLAG NO
[2024-12-10 14:26] LABS: Basophils Absolute Auto 0.1 X10*3/uL (0.0-0.2); Basophils Percent Auto 1.4 % (0-2); Eosinophils Absolute Auto 0.4 X10*3/uL (0.0-0.4); Eosinophils Percent Auto 4.7 % (0-4); Hematocrit 49.1 % (42.0-52.0); Hemoglobin 16.7 g/dl (14.0-18.0); Imm Gran Abs Auto 0.02 X10*3/uL (0.00-0.03); Imm Gran Pct Auto 0.3 % (0.0-0.4); Lymphocytes Absolute Auto 1.2 X10*3/uL (1.2-4.9); Lymphocytes Percent Auto 16.1 % (20-40); Mean Corpuscular Hemoglobin 31.2 pg (27.0-33.0); Mean Corpuscular Volume 91.8 fL (80.0-98.0); Mean Platelet Volume 11.8 fL (9.4-12.4); Monocytes Absolute Auto 0.6 X10*3/uL (0.1-1.2); Monocytes Percent Auto 8.4 % (2-11); Neutrophils Absolute Auto 5.3 x10*3/uL (2.0-8.3); Neutrophils Percent Auto 69.1 % (45-73); Platelet Count 257 X10*3/uL (160-400); Red Blood Count 5.35 X10*6/uL (4.60-5.80); White Blood Count 7.6 X10*3/uL (4.8-10.8)
[2024-12-10 14:47] LABS: Alanine Aminotransferase 15 U/L (0-40); Albumin Level 4.1 g/dL (3.5-5.0); Alkaline Phosphatase 78 U/L (39-117); Anion Gap 11 (12-20); Aspartate Amino Transferase 28 U/L (5-37); Blood Urea Nitrogen 11 mg/dL (9-16); Calcium 9.5 mg/dL (8.4-10.2); Carbon Dioxide 26 mmol/L (22-29); Chloride 109 mmol/L (96-108); Estimated Glomerular Filt Rate > 60; Glucose Random 86 mg/dL (60-115); Sodium 142 mmol/L (135-145); Total Protein 7.1 g/dL (6.5-8.0)
[2024-12-11 06:58] LABS: Immunoglobulin E 56 kU/L (<OR=114)
[2024-12-13 00:28] LABS: TS Negative Control Passed; TS Panel A 3; TS Panel B 0; TS Positive Control Passed; TSpotTB Negative (Negative)
[2024-12-13 06:54] LABS: Angiotensin Converting Enzyme 33.6 U/L (9-67)
[2024-12-15 01:48] LABS: VITAMIN D (1,25 OH) D3 45 pg/mL; Vit D (1,25-Dihydroxy) Total 45 pg/mL (18-72); Vitamin D (1,25 OH) D2 <8 pg/mL
[2024-12-18 13:43] LABS: Vitamin D 25-OH, D2 <4 ng/mL; Vitamin D 25-OH, D3 16 ng/mL; Vitamin D 25-OH, Total 16 ng/mL (30-100)
== END 2024-12-10 10:26 | disposition home or self-care (01) ==
LOC: HO.WFDLDS 10:25
PROVIDERS: Referring Provider Nurse Practitioner Family; Visit Provider Family Medicine
DX: Z00.00 Encounter for general adult medical examination without abnormal findings (principal); R05.9 Cough, unspecified; J45.909 Unspecified asthma, uncomplicated; Z91.09 Other allergy status, other than to drugs and biological substances
CPT/HCPCS: 36415; 80053; 82164; 82306; 82652; 82785; 85025; 86481

== ENCOUNTER 2024-12-12 13:21 | Outpatient (AMB) | payer BC, SELFPAY ==
--- NOTE | 2024-12-12 13:35 | MHC.PC.OV ---
Vital Signs 12/12/24 13:42 Height 6 ft 3 in Weight 281 lb 8 oz BMI 35.2 BP 118/70 Blood Pressure Location Rt brachial Position Sitting Respiration 16 Pulse 91 Pulse Source Pulse Oximeter Temp 100.0 F Temp Source Oral Pulse Oximetry (%) 95 Oxygen Delivery Method Room Air Intake Visit Reasons: f/u chest x-ray Intake Note: patient is scheduled to follow up for labs and radiology results Electronics Engineering Technologist Required: No Allergies No Known Allergies Allergy (Verified 12/12/24 13:35) Tobacco use date assessed: 10/28/24 Dental Screening Dental Screen Date: 10/28/24 HPI f/u chest x-ray HPI Details 34 y/o male presents to f/u chronic cough, chest x-ray. Had given him a trial of omeprazole and continued his albuterol inhaler. Chest x-ray 11/11/24 showed: Pulmonary reticular nodular pattern. Differential diagnostic considerations include: Pulmonary sarcoidosis versus tuberculosis versus hypersensitivity pneumonitis versus lymphocytic interstitial pneumonitis versus pulmonary Langerhans' cells histiocytosis versus drug-induced lung disease versus neoplasm PFSH Medical History Fibroma Skin lesion of lower extremity Family History Father Colon polyps Social History Housing: House Alcohol intake: never Patient Tobacco Use Status: Never used Tobacco Years Smoked: on occasion. 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 Cognitive needs: No Hearing needs: No Vision needs: No Questionnaire Thrive Questionnaire Date Thrive assessed: 10/28/24 I am a: Patient What is your living situation today?: I have a steady place to live Within the past 12 months, did the food you bought not last and you didn't have the money to get more?: Never true Within the past 12 months, did you worry whether your food would run out before you got money to buy more?: Never true Do you have trouble paying for medicines?: No Do you have trouble getting transportation to medical appointments?: No Do you have trouble paying your heating and electricity bill?: No Do you have trouble taking care of your child, family member or friend?: No Do you have trouble with day-to-day activities such as bathing, preparing meals, shopping, managing finances, etc.?: No Are you currently unemployed and looking for a job?: No Are you interested in more education?: No Please select the resources that you would like help with: None Currently or been in a relationship where the following occur: No concerns reported THRIVE Score: 0 XIOMARA-7 AMB Questionnaire XIOMARA-7 Date XIOMARA - 7 assessed: 10/28/24 Source: Developed by Drs. Bhaskar Ayon, Lesa Fisher, Rashel Field and colleagues, with an educational neal from [employer]. Review of Systems Const Denies chills, Denies fatigue, Denies fever(s), Denies headache(s) and Denies weakness ENT Denies dizziness and Denies headache(s) Card Denies dyspnea Resp Denies cough, Denies dyspnea, Denies wheezing and Denies other (shortness of breath) Musc Denies numbness and Denies tingling Neuro Denies dizziness, Denies headache(s), Denies numbness, Denies tingling and Denies weakness Psych Denies anxiety and Denies depression Endo Denies fatigue Aller/Immun Denies wheezing Physical exam (Primary Care) Vital Signs: Last Vital Signs Temp 100.0 F 12/12/24 13:42 Pulse 91 12/12/24 13:42 Resp 16 12/12/24 13:42 BP 118/70 12/12/24 13:42 Pulse Ox 95 12/12/24 13:42 Oxygen Delivery Method Room Air 12/12/24 13:42 BMI result Body Mass Index 35.2 Tobacco/Smoking Status: Tobacco use Status Tobacco use date assessed 10/28/24 12/12/24 13:39 Patient Tobacco Use Status Never used Tobacco 12/12/24 13:39 e-Cigarette/Vaping Use Never Used 12/12/24 13:39 Thrive Assessment: Date of Thrive Assessment Date Thrive assessed 10/28/24 12/12/24 13:39 Currently or been in a relationship where the following occur: No concerns reported Const General: well developed; No acute distress Nutritional Appearance: well nourished Orientation/consciousness: patient oriented x3 HENMT Head: Yes normocephalic and Yes atraumatic Eyes General: appearance normal, both eyes and all related structures Pupils: Equal, round and reactive pupils present EOM: EOMs intact bilaterally Resp Effort & Inspection: normal respiratory effort Auscultation: clear to auscultation bilaterally Cardio Rate: regular rate Rhythm: regular rhythm Heart sounds: S1 normal heart sound present, S2 normal heart sound present, no gallops, no murmurs and no rubs Neuro General: patient oriented x3 and gait normal Cranial nerves: Yes Equal, round and reactive pupils present Psych Affect: normal affect Coding Level of Care Code Est Pt Level 3 (68676) Diagnoses Cough R05.9 Abnormal chest xray R93.89 Hypersomnolence G47.10 Assessment & Plan Assessment & Plan (1) Cough: Code(s): R05.9 - Cough, unspecified Category: Medical Plan: Patient?with?chronic?cough and?I?ordered?a?chest?x-ray. CXR Result: Pulmonary reticular nodular pattern. Differential diagnostic considerations include: Pulmonary sarcoidosis versus tuberculosis versus hypersensitivity pneumonitis versus lymphocytic interstitial pneumonitis versus pulmonary Langerhans' cells histiocytosis versus drug-induced lung disease versus neoplasm. Pulmonary is working up possibility of poorly controlled asthma by adjusting his medications and check PFTs. Also checking RAST to rule out allergic contribution. Checking CT scan as other possibilities include neoplasm and occupational?exposure?pneumonitis. I had ordered TB test and GLORIA levels but patient only recently got these drawn and they are still pending. Will call pt w/ results. (2) Abnormal chest xray: Code(s): R93.89 - Abnormal findings on diagnostic imaging of other specified body structures Category: Medical Plan: As above (3) Hypersomnolence: Code(s): G47.10 - Hypersomnia, unspecified Category: Medical Plan: Patient?has?now?seen?sleep?Medicine. Plan?for?sleep?study?and?he?should?follow-up?with?sleep?medicine?as?recommended.
[2024-12-12 13:42] VITALS: BP 118/70; PULSE 91; RESP 16; TEMP 37.8; O2SAT 95; BMI 35.2
== END 2024-12-12 13:57 | disposition home or self-care (01) ==
LOC: HO.HMCFM 13:21
PROVIDERS: PCP Family Medicine; Visit Provider Family Medicine
DX: R05.9 Cough, unspecified (principal); R93.89 Abnormal findings on diagnostic imaging of other specified body structures; G47.10 Hypersomnia, unspecified

== ENCOUNTER 2025-01-19 12:51 | Outpatient (AMB) | payer BC, SELFPAY ==
--- NOTE | 2025-01-19 12:59 | MHC.OFFWIV ---
Intake Vital Signs 01/19/25 13:02 Height 6 ft 3 in Weight 266 lb BMI 33.2 BP 130/90 H Blood Pressure Location Lt brachial Position Sitting Pulse 102 H Pulse Source Pulse Oximeter Pulse Oximetry (%) 98 Oxygen Delivery Method Room Air Intake Visit Reasons: EP skin issues, itchy skin all over Intake Note: Patient here for skin issue/skin discoloration that is very itchy that has been present for about 1 week. Patient Tobacco Use Status: Never used Tobacco Allergies No Known Allergies Allergy (Verified 01/19/25 13:13) Do you need a note to return to daycare/school/sports/work: No HPI HPI Comments History of Present Illness Details 34 y/o Male patient who presents to the walk in clinic with c/o Rash all over body that is Itchy. This is a chronic issue, has been ongoing for years now. States that he saw Dermatology way back ~ 5 years ago, and was told the rash was constitent with Fungal, and he was prescribed Unknown medication (Shampoo) that did not work. Reports that he was suppose to leave the shampoo on the body for few minutes then wash off. Pt did not complete the treatment because I could not sit there naked on toilet sit waiting for the shampoo to dry off . Reports that Rash is brought on with Heat and sweating. He goes to the Gym daily and sweats alot. He does take showers right after he gets home from Gym. 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 Reports that the itching has been keeping him up at night time. He has tried Multiple products OTC with minimal relief. [facility] Medical History (Updated 01/19/25 @ 13:49 by Lolly Kuhn NP) Rash and nonspecific skin eruption Fibroma Skin lesion of lower extremity Family History Father Colon polyps Social History Housing: House Alcohol intake: never Patient Tobacco Use Status: Never used Tobacco Years Smoked: on occasion. 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 Pigmented Circular lesions Neuro General: patient oriented x3, gait normal and moves all extremities Psych Speech and movement: Normal speech and movement present Assessment & Plan Assessment & Plan (1) Rash and nonspecific skin eruption: Code(s): R21 - Rash and other nonspecific skin eruption Plan: DDx's: Tinea vs Vitiligo vs Tinea Vesicolor vs Dermatitis. Ordered Ketoconazole Shampoo Advised to call [facility] for an appointment. F/U with PCP. Medications: New ketoconazole 2% Apply to affected skin while damp, lather, leave on 5 -10 minutes, and rinse. 1 appl topical BID 120 mL 2RF 14 days R21 - Rash and other nonspecific skin eruption Coding Level of Care Code Est Pt Level 4 (76574) Diagnoses Rash and nonspecific skin eruption R21 Time Spent (min) 20
[2025-01-19 13:02] VITALS: BP 130/90; PULSE 102; O2SAT 98; BMI 33.2
== END 2025-01-19 13:56 | disposition home or self-care (01) ==
PROVIDERS: PCP Family Medicine; Visit Provider Nurse Practitioner Family
DX: R21 Rash and other nonspecific skin eruption (principal)

== ENCOUNTER 2025-01-19 16:10 | Outpatient (REF) | payer BC, SELFPAY ==
--- NOTE | ~2025-01-19 | CT_ITS ---
CLINICAL HISTORY: R93.89 - Abnormal findings on diagnostic imaging of other specified body... CT chest without contrast Comparison: CR/MI/SR - XR CHEST 2V - 11/11/24 15:42 EST Findings: The heart size is normal. The visualized thyroid is unremarkable. There are innumerable micro nodules distributed throughout the bilateral lungs. There are also multiple larger nodules which measure up to 15 mm in size (right lower lobe series 4, image 83 ). Some of the nodules demonstrate areas of cavitation. There are no foci of consolidation and there is no pleural effusion. There is a 5 cm mass within the right infrahilar region encasing multiple right lower lobe bronchial segments (series 3, image 41). There are multiple enlarged mediastinal lymph nodes measuring up to 2.4 cm in short axis dimension. The visualized upper abdomen is unremarkable. No acute fractures. IMPRESSION: 1. Innumerable nodules within the bilateral lungs including cavitary nodules. Suspect atypical infection. Metastatic disease is also possible. 2. 5 cm right infrahilar mass may represent a markedly enlarged lymph node or other mass. 3. There is also a mild degree of mediastinal lymphadenopathy. 4. Recommend further evaluation with PET scan. This document has been electronically signed by: Veena Hanna MD on 01/20/2025 16:14:03
== END 2025-01-19 16:11 | disposition home or self-care (01) ==
LOC: HO.CT 16:10
PROVIDERS: PCP Family Medicine; Visit Provider Nurse Practitioner Family
DX: R93.89 Abnormal findings on diagnostic imaging of other specified body structures (principal)
CPT/HCPCS: 71250

== ENCOUNTER → 2025-01-19 16:12 | Outpatient (BNV) | payer BC, SELFPAY | PROVIDERS: PCP Family Medicine; Visit Provider Radiology Diagnostic Radiology | DX: R91.8 Other nonspecific abnormal finding of lung field (principal) | CPT/HCPCS: 71250 ==

== ENCOUNTER 2025-01-21 13:15 | Outpatient (REF) | payer BC, SELFPAY ==
--- NOTE | 2025-01-21 13:34 | PFT_ITS ---
Spirometry [] Lung Volumes [] Diffusion Capacity [] Methacholine Challenge [] Flow Volume Loops [] MVV [] MIP/MEP(Max inspiratory pressure/Max expiratory pressure) [] 6 Minute Walk Test [] ABG [] Interpretation [] MTDD
[2025-01-21 14:12] VITALS: PULSE 90; O2SAT 95
== END 2025-01-21 13:16 | disposition home or self-care (01) ==
LOC: HO.RESP 13:15
PROVIDERS: PCP Family Medicine; Visit Provider Nurse Practitioner Family
DX: J45.909 Unspecified asthma, uncomplicated (principal)
CPT/HCPCS: 94010; 94640; 94727; 94729

== ENCOUNTER → 2025-01-21 13:34 | Outpatient (BNV) | payer BC, SELFPAY | PROVIDERS: PCP Family Medicine; Visit Provider Internal Medicine Pulmonary Disease | DX: J45.20 Mild intermittent asthma, uncomplicated (principal) | CPT/HCPCS: 94060; 94727; 94729 ==

== ENCOUNTER 2025-01-22 14:23 | Outpatient (AMB) | payer BC, SELFPAY ==
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
[2025-01-22 14:46] VITALS: BP 140/74; PULSE 85; O2SAT 99; BMI 33.6
== END 2025-01-22 14:56 | disposition home or self-care (01) ==
LOC: HO.PMC 14:23
PROVIDERS: PCP Family Medicine; Visit Provider Anesthesiology
DX: M54.50 Low back pain, unspecified (principal)
CPT/HCPCS: 99203

== ENCOUNTER 2025-01-24 19:57 | Emergency (ER) | payer BC, SELFPAY ==
--- NOTE | 2025-01-24 20:03 | ED_ITS ---
HPI - General Adult General Chief complaint: Headache Stated complaint: persistent cough, now has head pressure Time Seen by Provider: 01/24/25 20:02 Source: patient Mode of arrival: ambulatory Limitations: no limitations History of Present Illness ED Provider: Rd Sawant DO HPI narrative: 34-year-old male with past medical history of chronic cough or 8 years with no diagnosis and low testosterone on supplementation with periodic blood work presents to the ED due to a persistent nonproductive cough that started today and by noon time the patient developed a gradual progressively worsening headache located with the right side of the head and behind the bilateral eyes without vision changes or vomiting. He reports mild nausea. He denies passing out episodes or dizziness or difficulty walking. He denies numbness or weakness of his arms or legs. He denies any symptoms when he exerts himself. He denies fevers, chills, chest pain, difficulty breathing or any additional symptoms today. He has no prior history of headaches. He describes it as a squeezing pain. Related Data Home Medications ?Medication ?Instructions ?Recorded ?Confirmed clomiphene citrate 50 mg tablet 50 mg PO DAILY 12/12/24 (Clomid) testosterone 50 mg/mL 45 mg IM QWEEK 12/12/24 intramuscular solution Previous Rx's ?Medication ?Instructions ?Recorded ketoconazole 2 % shampoo 1 appl topical DAILY 14 days #120 01/21/25 mL Allergies Allergy/AdvReac Type Severity Reaction Status Date / Time No Known Allergies Allergy Verified 01/24/25 20:07 Review of Systems Review of Systems: Yes all other systems are reviewed and are negative [facility] Past Medical History Medical History (Updated 01/24/25 @ 20:[address] DO) Rash and nonspecific skin eruption Fibroma Skin lesion of lower extremity Family History Family History Father Colon polyps Social History Social History Housing: House Alcohol intake: never Patient Tobacco Use Status: Never used Tobacco Years Smoked: on occasion. 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 ?Moist mucous membranes Eyes: ?PERRL, EOMI Neck: ?Supple, nontender Chest: ?No chest wall tenderness Respiratory: ?Lungs clear to auscultation, no increased work of breathing Cardio: ?Regular rate and rhythm, no murmur, 2+ radial and DP pulses symmetrically GI: ?Soft, nondistended, nontender Back: ?Normal range of motion, nontender Skin: ?No rash, no lesions Neuro: ?Mental Status: Patient is alert, attentive, and fully oriented Speech: Clear and fluent CN II: Visual rodríguez are full, pupils are equal and briskly reactive to light CN III, IV, : Extra ocular motions are intact in all directions. No ptosis. CN V: Facial sensation intact, both upper and lower face CN VII: Symmetric facial movements CN VIII: Hearing is grossly normal CN IX, X: Symmetric elevation of palate, normal phonation CN XI: Shoulder shrug 5/5 strength bilaterally CN XII: Tongue protrudes midline Motor: No pronator drift bilaterally. 5/5 strength all 4 extremities. Normal muscle bulk and tone. Sensory: Sensation intact all 4 extremities to light touch without reported pa resthesias. Coordination: No dysmetria on finger to nose bilaterally. No truncal ataxia noted. Extremities: ?No swelling or tenderness, full range of motion Psych: ?Calm, alert and cooperative, appropriate behavior Medications Administered Generic Name Dose Route Start Last Admin Trade Name Freq PRN Reason Stop Dose Admin Sodium Chloride 1,000 mls @ 999 mls/hr 01/24/25 20:15 01/24/25 20:40 Ns IV 01/24/25 21:15 999 mls/hr .Q1H1M HAMIDA Administration Discontinued Medications Generic Name Dose Route Start Last Admin Trade Name Freq PRN Reason Stop Dose Admin Diphenhydramine HCl 25 mg 01/24/25 20:14 01/24/25 20:40 Diphenhydramine Hcl 50 Mg/Ml Vial IVPUSH 01/24/25 20:15 25 mg ONCE ONE Administration Acetaminophen 1,000 mg in 100 mls @ 400 mls/hr 01/24/25 20:14 01/24/25 20:39 Ofirmev IV 01/24/25 20:28 400 mls/hr ONCE ONE Administration Ketorolac Tromethamine 15 mg 01/24/25 20:14 01/24/25 20:40 Ketorolac Tromethamine 15 Mg/Ml Vial IVPUSH 01/24/25 20:15 15 mg ONCE ONE Administration Prochlorperazine Edisylate 10 mg 01/24/25 20:14 01/24/25 20:40 Prochlorperazine Edisylate 10 Mg/2 Ml Vial IVPUSH 01/24/25 20:15 10 mg ONCE ONE Administration Medical Decision Making Medical Decision Making MDM Narrative: This patient presents with a headache most consistent with primary headache in the setting of cough. Differential diagnosis includes migraine versus tension type headache. No headache red flags. Neurologic exam without evidence of meningismus, focal neurologic findings. Presentation not consistent with acute intracranial bleed to include SAH (lack of risk factors, headache history). I completed a structured, evidence-based clinical evaluation to screen for subarachnoid hemorrhage. The evidence indicates that the patient is very low risk for SAH and this is consistent with my clinical intuition. The risk of further workup or hospitalization is likely higher than the risk of the patient having a subarachnoid hemorrhage.? Presentation not consistent with acute [employer] infection including meningitis or brain abscess. Temporal arteritis unlikely, as is acute angle closure glaucoma given history and physical findings. No h ypercoagulable risk factors predisposing to cerebral venous thrombosis. No history of trauma to raise suspicion for carotid or vertebral dissection. Presentation not consistent with other acute, emergent causes of headache at this time. Plan to treat symptomatically with pain medication. No indication for imaging/LP at this time. Plan: pain medication, serial reassessment, CT head if not improved. Pain improved from a 9/10 to a 4/10 with medications. The patient feels significantly improved and is comfortable with plan to return to home. Return precautions provided as well as follow up with primary care provider early this week. Discharge Plan Discharge Clinical Impression: Headache Qualifiers: Headache type: unspecified Headache chronicity pattern: acute headache Intractability: not intractable Qualified Code(s): R51.9 - Headache, unspecified Patient Disposition: Home, Self-Care Instructions: Acute Headache (ED) Additional Instructions: You have been examined for a headache in the emergency department today. Please follow up with your primary care physician to ensure that you are recovering as expected. Although no evidence of an immediately life-threatening condition was found at the time of examination today, you should return immediately if you develop ANY new or worsening symptoms, especially sudden increase in pain, change in your vision, vomiting, fevers, or numbness/weakness in your arms or legs. When you return home, you should lie in a cool dark room and minimize sounds and other distractions while you rest. Thank you for choosing us for your care. Prescriptions: No Action ketoconazole 2 % shampoo 1 appl topical DAILY 14 Days Qty: 120 0RF Rx Instructions: Apply to affected skin while damp, lather, leave on 5 -10 minutes, and rinse. clomiphene citrate [Clomid] 50 mg tablet 50 mg PO DAILY testosterone 50 mg/mL solution 45 mg IM QWEEK Print Language: Mauritanian
[2025-01-24 20:05] VITALS: BP 151/47; BP 180/102; PULSE 82; PULSE 93; RESP 16; TEMP 36.7; O2SAT 95; BMI 32.1
[2025-01-24] MEDS: Acetaminophen 1,000 MG/100 ML PIGGYBACK 400 MG IV (20:39)
[2025-01-24] MEDS: diphenhydrAMINE HCL 50 MG/ML VIAL 25 MG IVPUSH (20:40)
[2025-01-24] MEDS: Ketorolac Tromethamine 15 MG/ML VIAL IVPUSH (20:40)
[2025-01-24] MEDS: 0.9 % Sodium Chloride 1,000 ML 999 ML IV (20:40)
[2025-01-24] MEDS: Prochlorperazine Edisylate 10 MG/2 ML VIAL IVPUSH (20:40)
[2025-01-24 21:43] VITALS: BP 122/73; PULSE 74; RESP 16; TEMP 36.4; O2SAT 95
--- NOTE | 2025-01-24 21:45 | PC.NURSE ---
pt states he is pleased with pain relief. no other changes in assessment. see head to toe. ambulated out of dept steadily
== END 2025-01-24 21:45 | disposition home or self-care (01) ==
PROVIDERS: Emergency Provider Emergency Medicine; PCP Family Medicine
DX: R51.9 Headache, unspecified (principal); R05.9 Cough, unspecified
CPT/HCPCS: 96361; 96365; 96375; 99284; J0131; J0737; J1200; J1885

== ENCOUNTER 2025-01-27 10:55 | Outpatient (AMB) | payer BC, SELFPAY ==
--- NOTE | 2025-01-27 11:00 | MHC.OFFVIS ---
Vital Signs 01/27/25 11:01 Height 6 ft 3 in Weight 273 lb 6 oz BMI 34.2 BP 124/68 Blood Pressure Location Rt brachial Position Sitting Pulse 75 Pulse Source Pulse Oximeter Pulse Oximetry (%) 95 Oxygen Delivery Method Room Air Intake Visit Reasons: Cough/ CT FU Allergies No Known Allergies Allergy (Verified 01/27/25 11:04) HPI HPI Cough/ CT FU: Details: Yoan is a pleasant 34 year old male, never smoker, with underlying asthma since childhood. He was initially referred by PCP for chronic cough with abnormal CXR which revealed pulmonary reticular nodular pattern opacities which could be suggestive of sarcoidosis, hypersensitivity pneumonitis or TB per radiologist report. PCP sent for GLORIA levels, unremarkable and Tspot negative. He continues to report chronic dry cough for the last 6-7 years with associated wheezing. 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 Today he presents to review chest CT and PFT. [facility] Medical History (Updated 01/28/25 @ 21:29 by Ruby Kurtz NP) Rash and nonspecific skin eruption Fibroma Skin lesion of lower extremity Family History Father Colon polyps Social History Housing: House Alcohol intake: never Patient Tobacco Use Status: Never used Tobacco Years Smoked: on occasion. 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 Cognitive needs: No Hearing needs: No Vision needs: No Review of Systems Const Denies chills, Denies excessive sweating, Denies fever(s), Denies headache(s) and Denies night sweats Eyes Denies dry eyes, Denies irritation and Denies itchy eyes ENT Reports Normal hearing present, Denies headache(s), Denies nasal congestion, Denies nasal discharge, Denies post nasal drip and Denies sore throat Card Denies chest pain, Denies chest pain at rest, Denies chest pain with activity, Denies claudication, Denies leg edema, Denies orthopnea and Denies paroxysmal nocturnal dyspnea Resp Denies chest congestion, Denies excessive phlegm production, Denies pain on inspiration, Denies pain with cough and Denies stridor Musc Denies myalgias Neuro Reports Normal hearing present and Denies headache(s) Endo Denies excessive sweating Freddy/Lymph Denies lymphadenopathy Aller/Immun Denies itchy eyes and Denies seasonal rhinorrhea Physical Exam Vital Signs: Last Vital Signs Pulse 75 01/27/25 11:01 BP 124/68 01/27/25 11:01 Pulse Ox 95 01/27/25 11:01 Oxygen Delivery Method Room Air 01/27/25 11:01 BMI result Body Mass Index 34.2 Const General: cooperative, healthy appearing, comfortable, no acute distress, well developed and alert Orientation/consciousness: patient oriented x3 Limitations: no limitations HEENT Head: Yes normal to inspection, Yes normocephalic and Yes atraumatic Ears: hearing grossly normal bilaterally and external ears normal Eyes General: appearance normal, both eyes and all related structures Eyelids: Yes eyelids normal Sclerae: sclerae normal EOM: EOMs intact bilaterally Neck Neck: Yes normal visual inspection and Yes no lymphadenopathy Lymphatic: no lymphadenopathy noted Chest Chest palpation & inspection: normal inspection of the chest Resp Effort & Inspection: normal respiratory effort, able to speak in complete sentences, no audible wheezes, no cough, no stridor, not tachypneic, no tripod positioning and no use of accessory muscles Auscultation: clear to auscultation bilaterally Cardio Jugular venous distension: no JVD Rate: regular rate Rhythm: regular rhythm Skin Other: warm, dry with widespread flat patches reddish brown on forearms Neuro General: patient oriented x3 Cranial nerves: Yes Normal hearing present Cognition (Neuro): normal cognition Gait exam (Neuro): Normal gait present Extrem General: Yes normal to inspection, Yes capillary refill normal, Yes no clubbing, cyanosis or edema and Yes no pedal edema Psych Appearance: grossly normal and well kempt Speech and movement: Normal speech and movement present and Clear speech present Affect: normal affect Attitude: cooperative Thought process: Normal thought process present Thought content: Normal thought content present Insight: Good insight present (Psych) Judgement: Good judgement present (Psych) Results Reviewed Results Reviewed: [address] [address] [address] Scan Report Signed with Yordan Patient: Yoan Cox MR#: [id number] : 1990 Acct:[id number] Age/Sex: 34 / M ADM Date: 01/19/25 Loc: HO.CT Attending Dr: Ruby Kurtz NP Ordering Physician: Ruby Kurtz NP Date of Service: 01/19/25 Procedure(s): CT chest wo IV con Accession Number(s): [id number] cc: Fabiano Becker MD; Ruby Kurtz NP~ Report Number: [id number]: Total DLP = 244.00 mGy-cm ADDENDUMThis document has been electronically signed by: Veena Hanna MD on 01/20/2025 16:14:03 ADDENDUM: Receipt of this report by the clinical staff was confirmed with Sandra Hwang, Airconditioning Plant Operator on January 21, 2025 10:39:00 EDT. This document has been electronically signed by: Caprice Foster on 01/21/2025 10:40:28 Addendum Dictated By: Veena Hnana MD Addendum Signed By: <Electronically signed by Veena Hanna MD in OV> 01/21/25 1041 Addendum Cosigned By: DD/ TD/TT: 01/21/25 CLINICAL HISTORY: R93.89 - Abnormal findings on diagnostic imaging of other specified body... CT chest without contrast Comparison: CR/WA/SR - XR CHEST 2V - 11/11/24 15:42 EST Findings: The heart size is normal. The visualized thyroid is unremarkable. There are innumerable micro nodules distributed throughout the bilateral lungs. There are also multiple larger nodules which measure up to 15 mm in size (right lower lobe series 4, image 83 ). Some of the nodules demonstrate areas of cavitation. There are no foci of consolidation and there is no pleural effusion. There is a 5 cm mass within the right infrahilar region encasing multiple right lower lobe bronchial segments (series 3, image 41). There are multiple enlarged mediastinal lymph nodes measuring up to 2.4 cm in short axis dimension. The visualized upper abdomen is unremarkable. No acute fractures. IMPRESSION: 1. Innumerable nodules within the bilateral lungs including cavitary nodules. Suspect atypical infection. Metastatic disease is also possible. 2. 5 cm right infrahilar mass may represent a markedly enlarged lymph node or other mass. 3. There is also a mild degree of mediastinal lymphadenopathy. 4. Recommend further evaluation with PET scan. 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 Encouraged patient to continue ICS/LABA. Chest CT revealed innumerable nodules within the bilateral lungs including cavitary nodules, 5 cm right infrahilar mass may represent a markedly enlarged lymph node or other mass with associated mild mediastinal lymphadenopathy. Reviewed chest CT with Dr. Merrill, CT suggestive of sarcoidosis despite GLORIA level WNL. Will empirically start prednisone 50mg QD x 1 month and repeat chest CT with contrast to assess for radiographic improvement as well as symptomatic improvement. If improvement, will continue prednisone for a total of three months then slow taper. Patient was given information regarding sarcoidosis from [employer]. Potential short term and custodial side effects reviewed with patient. Recommended daily intake of calcium. Discussed importance of further evaluation with EKG, order placed. He recently had evaluation with ophthamologist which was unremarkable. Recent kidney function WNL. If no improvements with prednisone will send for PET/biopsy. Will also send for autoimmune workup and HPS panel to rule out alternative causes of abnormalities on CT. All questions were answered and patient is in agreement of plan. Will follow up in 4 weeks or sooner if needed. Orders: Orders ELIZABETH Reflex Titer and Pattern 01/27/25 D86.9 - Sarcoidosis, unspecified Rheumatoid Factor 01/27/25 D86.9 - Sarcoidosis, unspecified Scleroderma 70 Antibody 01/27/25 D86.9 - Sarcoidosis, unspecified CT chest w IV con 4 Weeks D86.9 - Sarcoidosis, unspecified, R59.0 - Localized enlarged lymph nodes ECG 12 lead EKG 01/27/25 D86.9 - Sarcoidosis, unspecified Sjogren's Antibodies 01/27/25 D86.9 - Sarcoidosis, unspecified Hypersensitive Pneumonitis Prf 01/27/25 D86.9 - Sarcoidosis, unspecified Medications: New fluticasone furoate-vilanterol 100-25 mcg/dose (Breo Ellipta) 1 inh inhalation DAILY 60 ea 3RF prednisone 50 mg PO DAILY 30 tabs 1RF Refilled fluticasone propion-salmeterol 250-50 mcg/dose (Wixela Inhub) 1 inh inhalation Q12H 60 ea 3RF Coding Level of Care Code Est Pt Level 5 (50308) Complex EM visit Add On G2211 Diagnoses Sarcoidosis D86.9 Mediastinal lymphadenopathy R59.0 Asthma J45.909 Cough R05.9
[2025-01-27 11:01] VITALS: BP 124/68; PULSE 75; O2SAT 95; BMI 34.2
== END 2025-01-27 11:51 | disposition home or self-care (01) ==
LOC: HO.HPSW 10:56
PROVIDERS: PCP Family Medicine; Visit Provider Nurse Practitioner Family
DX: D86.9 Sarcoidosis, unspecified (principal); R59.0 Localized enlarged lymph nodes; J45.909 Unspecified asthma, uncomplicated; R05.9 Cough, unspecified
CPT/HCPCS: 99214

== ENCOUNTER 2025-01-27 12:05 | Outpatient (REF) | payer BC, SELFPAY ==
[2025-01-27 14:39] LABS: Rheumatoid Factor < 13.0 IU/mL (<15.0)
[2025-01-28 21:24] LABS: Antibody to SS-A Antigen <1.0 NEG AI (<1.0 NEG); Antibody to SS-B Antigen 1.7 POS AI (<1.0 NEG); Scleroderma 70 Antibody <1.0 NEG AI (<1.0 NEG)
[2025-01-29 14:53] LABS: Anti Nuclear Antibody Screen NEGATIVE (NEGATIVE)
[2025-01-30 22:38] LABS: Class Alternaria alternata 0; Class Aspergillus fumigatus 0; Class Bermuda Grass 0; Class Birch 0; Class Cat Dander 0; Class Cladosporium herbarum 0; Class Cockroach 0; Class Common Ragweed 0; Class Cottonwood 0; Class Derm. pterony 0; Class Dermatophagoides farinae 0; Class Dog Dander 0; Class Elm 0; Class Maple Box Elder 0; Class Mountain Cedar 0; Class Mouse Urine Protein 0; Class Mugwort 0; Class Oak 0; Class Penicillium crysogenum 0; Class Rough Pigweed 0; Class Sheep Sorrel 0; Class Sycamore 0; Class Timothy Grass 0; Class Walnut Tree 0; Class White Ash 0; Class White Mulberry 0; D001 IgE D pteronyssinus <0.10 kU/L; D002 - IgE D farinae <0.10 kU/L; E001 - IgE Cat Dander <0.10 kU/L; E005 - IgE Dog Dander <0.10 kU/L; E072-IgE Mouse Urine <0.10 kU/L; G002 IgE Bermuda Grass <0.10 kU/L; G006 - IgE Timothy Grass <0.10 kU/L; I006-IgE Cockroach, German <0.10 kU/L; Immunoglobulin E 54 kU/L (<OR=114); M001 IgE Penicillium chrysogen <0.10 kU/L; M002 - IgE Cladosporium herbar <0.10 kU/L; M003 - IgE Aspergillus fumigat <0.10 kU/L; M006 - IgE Alternaria alternat <0.10 kU/L; T001 IgE Maple/Box Elder <0.10 kU/L; T003 IgE Common Silver Birch <0.10 kU/L; T006 - IgE Cedar, Mountain <0.10 kU/L; T007 - IgE Oak, White <0.10 kU/L; T008 IgE Elm, American <0.10 kU/L; T010 - IgE Walnut <0.10 kU/L; T011 - IgE Maple Leaf Sycamore <0.10 kU/L; T014 - IgE Cottonwood <0.10 kU/L; T015 - IgE Ash, White <0.10 kU/L; T070 - IgE White Mulberry <0.10 kU/L; W001 - IgE Ragweed, Short <0.10 kU/L; W006 - IgE Mugwort <0.10 kU/L; W014 IgE Pigweed, Common <0.10 kU/L; W018 IgE Sheep Sorrel <0.10 kU/L
[2025-02-02 17:17] LABS: Asperg fumigatus Precip Abs NEGATIVE (NEGATIVE); Micropoly faeni Abs NEGATIVE (NEGATIVE); Pigeon serum Abs NEGATIVE (NEGATIVE); Saccharo pora viridis Abs NEGATIVE (NEGATIVE); Thermo candidus Abs NEGATIVE (NEGATIVE); Thermoa vulgaris #1 NEGATIVE (NEGATIVE)
== END 2025-01-27 12:06 | disposition home or self-care (01) ==
LOC: HO.WFDLDS 12:05
PROVIDERS: Visit Provider Nurse Practitioner Family
DX: D86.9 Sarcoidosis, unspecified (principal); Z91.09 Other allergy status, other than to drugs and biological substances
CPT/HCPCS: 36415; 82785; 86003; 86038; 86235; 86331; 86431; 86606; 86609

== ENCOUNTER → 2025-02-12 10:11 | Outpatient (BNVA) | payer BC, SELFPAY | PROVIDERS: PCP Family Medicine; Visit Provider Family Medicine | DX: Z13.89 Encounter for screening for other disorder (principal) ==

== ENCOUNTER → 2025-02-12 10:11 | Outpatient (AMB) | payer BC, SELFPAY ==
--- NOTE | 2025-02-12 10:08 | A.OFFPC_ITS ---
Intake Visit Reasons: f/u labs via telemedicine Intake Note: patient is scheduled for lab review Allergies No Known Allergies Allergy (Verified 02/12/25 10:08) Tobacco use date assessed: 10/28/24 Dental Screening Dental Screen Date: 10/28/24 HPI f/u labs via telemedicine HPI Details 34 y/o male presents to review labs. Had been following up with pulmnology - PFT revealed mild obstructive ventilatory defect with positive bronchodilator response. Chest CT revealed innumerable nodules within the bilateral lungs including cavitary nodules. CT suggestive of sarcoidosis despite TOMÁS level WNL. Was started on prednisone 50mg QD x1 month. Pt feels cough has been improving on prednisone but has been working outside more. [facility] Medical History (Updated 01/28/25 @ 21:29 by Ruby Kurtz NP) Rash and nonspecific skin eruption Fibroma Skin lesion of lower extremity Family History (Reviewed 10/28/24 @ 16:14 by Gordy Fontana [facility]) Father Colon polyps Social History (Reviewed 01/27/25 @ 11:04 by Demetrice Carpenter [facility]) Housing: House Alcohol intake: never Patient Tobacco Use Status: Never used Tobacco Years Smoked: on occasion. 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 Bhaskar Ayon, Lesa Fisher, Rashel Field and colleagues, with an educational neal from [employer]. Review of Systems Const Denies chills, Denies fatigue, Denies fever(s), Denies headache(s) and Denies weakness ENT Denies dizziness and Denies headache(s) Card Denies dyspnea Resp Denies cough, Denies dyspnea, Denies wheezing and Denies other (shortness of breath) Musc Denies numbness and Denies tingling Neuro Denies dizziness, Denies headache(s), Denies numbness, Denies tingling and Denies weakness Psych Denies anxiety and Denies depression Endo Denies fatigue Aller/Immun Denies wheezing Physical exam (Primary Care) Tobacco/Smoking Status: Tobacco use Status Tobacco use date assessed 10/28/24 02/12/25 10:10 Patient Tobacco Use Status Never used Tobacco 02/12/25 10:10 e-Cigarette/Vaping Use Never Used 02/12/25 10:10 Thrive Assessment: Date of Thrive Assessment Date Thrive assessed 10/28/24 02/12/25 10:10 Telehealth Telehealth Telehealth Platform: Telephone Location of provider rendering services: practice address Location of patient: address on file Patient Identification confirmed using: Name, : Yes Telehealth method: voice only Patient verbally consented to treatment: Yes Patient verbally consented to billing insurance company: Yes Patient informed of any privacy concerns related to visit: Yes Minutes spent on Phone/Video with Pt.: 5 Coding Level of Care Code Tele Est Pt Level 2 (51089) Diagnoses Sarcoidosis D86.9 Cough R05.9 Hypersomnolence G47.10 Assessment & Plan Assessment & Plan (1) Sarcoidosis: Code(s): D86.9 - Sarcoidosis, unspecified Category: Medical Plan: CT shows?sarcoidosis?despite?Tomás?test?negative Now?on?prednisone Patient?says?he?felt?like?the?cough?was?improving?on?prednisone?but?has?been?wor edu?outside?more?and?air?quality?has?been?weight?poor He?inquires?if?he?can?take?a?daytime?antihistamine - he?can?start?Zyrtec Limit?exposure?to?pollen?and other irritants?in?the?air Follow-up?with?Pulmonary?Medicine?as?recommended (2) Cough: Code(s): R05.9 - Cough, unspecified Category: Medical Plan: As?above (3) Hypersomnolence: Code(s): G47.10 - Hypersomnia, unspecified Category: Medical Plan: Patient?has?not?been?scheduled?for?sleep?study He?wants?to?wait?until?he?deals?with?his?chronic?cough Advised?him?to?sleep?on?side Will?address?again?at?upcoming?visits
== END ==
LOC: HO.HMCFM 10:11
PROVIDERS: PCP Family Medicine; Visit Provider Family Medicine
DX: D86.9 Sarcoidosis, unspecified (principal); R05.9 Cough, unspecified; G47.10 Hypersomnia, unspecified

== ENCOUNTER 2025-03-04 12:45 | Outpatient (REF) | payer BC, SELFPAY ==
--- NOTE | ~2025-03-04 | CT_ITS ---
EXAMINATION: CT CHEST WITH IV CONTRAST INDICATION: D86.9 - Sarcoidosis, unspecified COMPARISON: Comparison is made with the prior examination dated 01/19/2025. TECHNIQUE: Helical CT scan of the chest was performed following administration of intravenous contrast. Coronal and sagittal reformatted images were generated and reviewed. This CT exam was performed with one or more of the following dose reduction techniques: automated exposure control, adjustment of the mA and/or kV according to patient size, use of iterative reconstruction technique. DLP: 193 mGy-cm CHEST: THYROID: The thyroid is unremarkable. LUNGS: Again seen are innumerable pulmonary micronodules scattered throughout all lobes of both lungs. There is a suggestion a greater number of nodules on the current study, although lung volumes are lower which may explain this appearance. Several larger nodules are noted mainly in the lower lobes measuring up to 1.2 cm (series 4, image 73). Several of the nodules also demonstrate central cavitation (in the right lower lobe series 4, image 88 and in the left lower lobe series 4 image 108). MEDIASTINUM: Again seen is diffuse mediastinal lymphadenopathy. There is a superior mediastinal lymph node on the right measuring 2.2 cm. Multiple right paratracheal lymph nodes measure up to 2.0 cm. There is a precarinal lymph node measuring 3.0 cm. AP window nodes measure 2.2 cm. ANA: Again seen is a right hilar mass measuring approximately 4.7 cm which demonstrates central calcification. No left hilar lymphadenopathy is seen. CARDIOVASCULATURE: The heart is normal in size. There is no pericardial effusion. The thoracic aorta is normal in caliber. DEGREE OF CORONARY CALCIFICATION: none PLEURA: There is no pleural effusion. No pneumothorax. MAIN AIRWAYS: There is mild narrowing of right middle and lower lobe bronchi secondary to the above-described hilar mass. AXILLA: There is no axillary lymphadenopathy. BONES AND SOFT TISSUES: Unremarkable UPPER ABDOMEN: The visualized portions of the liver, spleen, and adrenals are unremarkable. CT/CT chest w IV con IMPRESSION: 4.7 cm right hilar mass demonstrating central calcification, with diffuse mediastinal lymphadenopathy as described. Profusion of pulmonary micronodules with additional larger nodules in the lower lobes, many of which demonstrate cavitation. Findings are not significantly changed from the prior study. While the appearance could certainly represent sarcoidosis, further evaluation with bronchoscopy and tissue diagnosis is recommended to exclude malignancy. Electronically signed by: Bhaskar Malloy MD 03/04/2025 01:59 PM EDT
[2025-03-04] MEDS: iohexoL 350 MG/ML 100 ML INFUS..BTL IV (13:24)
== END 2025-03-04 12:46 | disposition home or self-care (01) ==
LOC: HO.CT 12:45
PROVIDERS: PCP Family Medicine; Visit Provider Nurse Practitioner Family
DX: D86.9 Sarcoidosis, unspecified (principal); R59.0 Localized enlarged lymph nodes
CPT/HCPCS: 71260; Q9967

== ENCOUNTER → 2025-03-04 12:46 | Outpatient (BNV) | payer BC, SELFPAY | PROVIDERS: PCP Family Medicine; Visit Provider Radiology Diagnostic Radiology | DX: R91.8 Other nonspecific abnormal finding of lung field (principal) | CPT/HCPCS: 71260 ==

== ENCOUNTER 2025-03-06 12:54 | Outpatient (AMB) | payer BC, SELFPAY ==
--- NOTE | 2025-03-06 12:44 | A.OFFVIS_ITS ---
Vital Signs 03/06/25 13:13 Height 6 ft 3 in Weight 268 lb 8 oz BMI 33.6 BP 118/70 Blood Pressure Location Lt brachial Position Sitting Pulse 104 H Pulse Source Pulse Oximeter Pulse Oximetry (%) 95 Oxygen Delivery Method Room Air Intake Visit Reasons: Cough/ CT FU Allergies No Known Allergies Allergy (Verified 03/06/25 13:15) HPI HPI Cough/ CT FU: Details: Yoan is a pleasant 34 year old male, never smoker, with underlying asthma since childhood. He was initially referred by PCP for chronic cough with abnormal CXR which revealed pulmonary reticular nodular pattern opacities which could be suggestive of sarcoidosis, hypersensitivity pneumonitis or TB per radiologist report. PCP sent for GLORIA levels, unremarkable and Tspot negative. Reviewed CT with Dr. Merrill, agreed findings are suggestive of sarcoidosis and was prescribed 50 mg prednisone QD x 1 month. He reports 50% improvement in cough however has had significant difficulties tolerating prednisone with worsening depression, cognitive and vision changes. He has been evaluated previously by ophthamology and encouraged patient to reach out to discuss vision changes. Today he presents to review chest CT results after 1 month course of high dose prednisone. [facility] Medical History (Updated 01/28/25 @ 21:29 by Ruby Kurtz NP) Rash and nonspecific skin eruption Fibroma Skin lesion of lower extremity Family History Father Colon polyps Social History Housing: House Alcohol intake: never Patient Tobacco Use Status: Never used Tobacco Years Smoked: on occasion. 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 Cognitive needs: No Hearing needs: No Vision needs: No Review of Systems Const Denies chills, Denies excessive sweating, Denies fever(s), Denies headache(s) and Denies night sweats Eyes Denies dry eyes, Denies irritation and Denies itchy eyes ENT Reports Normal hearing present, Denies headache(s), Denies nasal congestion, Denies nasal discharge, Denies post nasal drip and Denies sore throat Card Denies chest pain, Denies chest pain at rest, Denies chest pain with activity, Denies claudication, Denies leg edema, Denies dyspnea on exertion, Denies orthopnea and Denies paroxysmal nocturnal dyspnea Resp Denies change in phlegm color, Denies chest congestion, Reports cough, Denies hemoptysis, Denies excessive phlegm production, Denies pain on inspiration, Denies pain with cough, Denies dyspnea on exertion, Denies stridor and Denies wheezing Musc Denies myalgias Neuro Reports Normal hearing present and Denies headache(s) Psych Reports anxiety Endo Denies excessive sweating Freddy/Lymph Denies lymphadenopathy Aller/Immun Denies itchy eyes, Denies seasonal rhinorrhea and Denies wheezing Physical Exam Vital Signs: Last Vital Signs Pulse 104 H 03/06/25 13:13 BP 118/70 03/06/25 13:13 Pulse Ox 95 03/06/25 13:13 Oxygen Delivery Method Room Air 03/06/25 13:13 BMI result Body Mass Index 33.6 Const General: cooperative, healthy appearing, comfortable, no acute distress, well de veloped and alert Orientation/consciousness: patient oriented x3 Limitations: no limitations HEENT Head: Yes normal to inspection, Yes normocephalic and Yes atraumatic Ears: hearing grossly normal bilaterally and external ears normal Eyes General: appearance normal, both eyes and all related structures Eyelids: Yes eyelids normal Sclerae: sclerae normal EOM: EOMs intact bilaterally Neck Neck: Yes normal visual inspection and Yes no lymphadenopathy Lymphatic: no lymphadenopathy noted Chest Chest palpation & inspection: normal inspection of the chest Resp Effort & Inspection: normal respiratory effort, able to speak in complete sentences, no audible wheezes, no cough, no stridor, not tachypneic, no tripod positioning and no use of accessory muscles Auscultation: clear to auscultation bilaterally Cardio Jugular venous distension: no JVD Rate: regular rate Rhythm: regular rhythm Skin Other: warm, dry with widespread flat patches reddish brown on forearms Neuro General: patient oriented x3 Cranial nerves: Yes Normal hearing present Cognition (Neuro): normal cognition Gait exam (Neuro): Normal gait present Extrem General: Yes normal to inspection, Yes capillary refill normal, Yes no clubbing, cyanosis or edema and Yes no pedal edema Psych Appearance: grossly normal and well kempt Speech and movement: Normal speech and movement present and Clear speech present Affect: normal affect Attitude: cooperative Thought process: Normal thought process present Thought content: Normal thought content present Insight: Good insight present (Psych) Judgement: Good judgement present (Psych) Assessment & Plan Assessment & Plan (1) Sarcoidosis: Code(s): D86.9 - Sarcoidosis, unspecified Category: Medical (2) Mediastinal lymphadenopathy: Code(s): R59.0 - Localized enlarged lymph nodes Category: Medical (3) Asthma: Code(s): J45.909 - Unspecified asthma, uncomplicated Category: Medical (4) Cough: Code(s): R05.9 - Cough, unspecified Category: Medical Plan We had long discussion regarding prednisone and the need to continue for a total of 3 months however patient can not sustain daily functions with prednisone at this dose. Reviewed benefits and adverse reactions of continued use and patient would like to start tapering at this time. Will decrease by 10 mg q 3 weeks starting tomorrow. Reviewed chest CT which revealed essentially stable findings, with some areas of improvement as well as some areas of progression. At this time, will send for EBUS with Dr. Merrill for biopsy which patient was in agreement with. Encouraged patient to continue Wixela. He is aware to call if symptoms change as he tapers doses. All questions were answered and patient is in agreement of plan. Will follow up to review results of EBUS or sooner if needed. Medications: New prednisone see taper instructions 40 mg x 3 weeks, 30 mg x 3 weeks, 20 mg x 3 weeks and 10 mg 3 weeks 5 mg 3 weeks 10 mg PO DIRECTED 221 tabs 0RF Coding Level of Care Code Est Pt Level 4 (79689) Complex EM visit Add On G2211 Diagnoses Sarcoidosis D86.9 Mediastinal lymphadenopathy R59.0 Asthma J45.909 Cough R05.9
[2025-03-06 13:13] VITALS: BP 118/70; PULSE 104; O2SAT 95; BMI 33.6
== END 2025-03-06 13:58 | disposition home or self-care (01) ==
LOC: HO.HPSW 12:55
PROVIDERS: PCP Family Medicine; Visit Provider Nurse Practitioner Family
DX: D86.9 Sarcoidosis, unspecified (principal); R59.0 Localized enlarged lymph nodes; J45.909 Unspecified asthma, uncomplicated; R05.9 Cough, unspecified
CPT/HCPCS: 99214

== ENCOUNTER 2025-04-01 10:29 | Day surgery (SDC) | payer BC, SELFPAY ==
[2025-03-30 15:56] VITALS: BMI 33.6
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
[2025-04-01] VITALS (7 sets, daily range): BP systolic 109–142; BP diastolic 71–107; PULSE 88–115; RESP 16–24; TEMP 37.1–37.5; O2SAT 92–96; BMI 31.4
--- NOTE | 2025-04-01 12:45 | MHC.SHP ---
Pre-Procedural Eval Section A - 24 Hr Update-Section A only Date of Service: 04/01/25 The patient is an INPATIENT: No Changes since office visit: Yes Patient answered all questions; No Cold of Flu in the past 2 weeks, No New Medical Problems and No Changes in Medication Section B - Complete if H&P > 30 days Chief Complaint: Sarcoidosis of lung Allergies: Allergies Allergy/AdvReac Type Severity Reaction Status Date / Time No Known Allergies Allergy Verified 03/06/25 13:15 Exam Surgical H&P Exam: Normal: HEENT, Normal: Heart, Normal: Lungs, Normal: Extremities, Normal: Abdomen, Normal: Skin and Normal: Neurological Plan Diagnosis/Plan: Unchanged I have reviewed the history and physical and performed a pertinent physical examination on my patient. No changes have occurred unless specified. Time Spent With Patient Time: Total time managing care of this patient today ____ minutes.
[2025-04-01] MEDS: Lactated Ringers 1,000 ML 100 ML IVCONT (13:01)
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
--- NOTE | 2025-04-01 14:52 | PM.OP ---
Brief Operative Note Date of Service: 04/01/25 Pre-op diagnosis: Mediastinal lymphadenopathy Procedure: EBUS equipped bronchoscope advanced through the ET tube with patient intubated for the procedure and through the tracheobronchial tree with visualization of normal bronchial mucosa in no endobronchial lesion noted. Thereafter endobronchial ultrasound-guided biopsies of station 4 and 7 with 3 passes minimum each performed with sample sent for further laboratory testing. Biopsy sites observed and no active bleeding noted. Patient transferred back to PACU in stable condition. Surgeon: Ras Merrill MD Anesthesia: GETA Was an Residential Appliance Repair Technician used for this Procedure?: No Estimated blood loss (mL): 0 Condition: stable Disposition: PACU
--- NOTE | 2025-04-01 17:04 | HO.POSTANES ---
Post Anesthesia Evaluation Post Anesthesia Evaluation Date of Service: 04/01/25 Vital Signs: Vital Signs Temp Pulse Resp BP Pulse Ox O2 Del Method O2 Flow Rate 04/01/25 15:50 98.9 F 95 18 109/74 94 04/01/25 15:35 99 20 117/71 95 Nasal Cannula 2 04/01/25 15:20 97 20 142/83 H 95 Nasal Cannula 2 04/01/25 15:15 109 H 22 H 132/75 92 Nasal Cannula 2 04/01/25 15:10 111 H 24 H 113/80 94 Nasal Cannula 2 04/01/25 15:05 98.8 F 115 H 22 H 140/107 H 94 Nasal Cannula 2 04/01/25 13:11 99.5 F 88 16 120/74 96 Room Air Anesthesia: General Endotracheal-GETA Mental Status: Awake Pain Control: Satisfactory Nausea/Vomiting: None Hydration: Adequate Anesthesia-Related Issues: No Anes. Related Issues
== END 2025-04-01 16:10 | disposition home or self-care (01) ==
PROVIDERS: Pathology Anatomic Pathology & Clinical Pathology; PCP Family Medicine; Visit Provider Internal Medicine Pulmonary Disease
PROC: (CPT 31652; principal; 2025-04-01 14:00)
DX: D86.0 Sarcoidosis of lung (principal); R59.0 Localized enlarged lymph nodes; C77.0 Secondary and unspecified malignant neoplasm of lymph nodes of head, face and neck; R05.3 Chronic cough; J45.909 Unspecified asthma, uncomplicated; Z79.52 Long term (current) use of systemic steroids; D21.9 Benign neoplasm of connective and other soft tissue, unspecified; F32.A Depression, unspecified; R41.89 Other symptoms and signs involving cognitive functions and awareness; H53.9 Unspecified visual disturbance; R21 Rash and other nonspecific skin eruption
CPT/HCPCS: 31652; 88112; 88172; 88173; 88177; 88305; 88313; 88341; 88342; J1100; J2003; J2250; J2405; J2704; J3010

== ENCOUNTER → 2025-04-01 10:29 | Outpatient (BNV) | payer BC, SELFPAY | PROVIDERS: PCP Family Medicine; Visit Provider Internal Medicine Pulmonary Disease | DX: R59.0 Localized enlarged lymph nodes (principal); D86.0 Sarcoidosis of lung | CPT/HCPCS: 31622 ==

== ENCOUNTER 2025-04-10 11:02 | Outpatient (AMB) | payer BC, SELFPAY ==
--- OUTSIDE RECORDS SUMMARY | 2025-04-10 11:09 | XMS_ITS | Clinical Summary ---
Author Organization [facility] Address [email or web address] [address] [place] [phone] Phone Care Team Providers Care Prop And Scenery Maker Name Role Phone Fabiano Becker MD Primary Care Provider Allergies No known active allergies Medications No known medications Social History Tobacco Use Types Packs/Day Years Used Date Smoking Tobacco: Never Assessed Education Answer Date Recorded Are you interested in more education? Not on raisa e 07/10/2024 Are you concerned about learning? Not on file 07/10/2024 No 07/10/2024 No 07/10/2024 Digital Access Answer Date Recorded No 07/10/2024 No 07/10/2024 Reliable internet access at home? Not on file 07/10/2024 Device with a working camera? Not on file Intimate Partner Violence Answer Date R ecorded Are you denied basic needs s uch as food, clothing, or medical care? No 07/10/2024 In the past 12 months have y ou been in a relationship with a person who hurts, threatens, or tries to control you? No 07/10/2024 Are you denied basic needs s uch as food, clothing, or medical care? No 07/10/2024 In the past 12 months have y ou been in a relationship with a person who hurts, threatens, or tries to control you? No 07/10/2024 Sex and Gender Information Value Date Recorded Sex Assigned at Male 07/10/2024 9:35 AM EDT Legal Sex Male 8:58 PM EDT Gender Identity Male 07/10/2024 9:35 AM EDT Sexual Orientation Don't know 07/10/2024 10 :18 AM EDT Last Filed Vital Signs Vital Sign Reading Time Taken Comments Blood Pressure 134/80 07/10/2024 12:31 PM EDT Pulse 66 07/10/2024 12:31 PM EDT Temperature 36.8 C (98.3 F) 07/10/2024 12:31 PM EDT Respiratory Rate 16 07/10/2024 12:31 PM EDT Oxygen Saturation 99% 07/10/2024 12:31 PM EDT Inhaled Oxygen Concentration - - Weight 149.7 kg (330 lb) 07/10/2024 9:34 AM EDT Height 190.5 cm (6' 3 ) 07/10/2024 9:34 AM EDT Body Mass Index 41.25 07/10/2024 9:34 AM EDT Plan of Treatment Upcoming Encounters Date Type Department Care Team (Late st Contact Info) Description 07/16/2025 2:00 PM EST Office Visit [facility] [address] [place] [address] Gwen Briceno MD [address] [place] [address] [email or web address] Health Maintenance Due Date Last Done Comments Adult Td,Tdap Booster 1992 DEPRESSION SCREENING 2004 SMOKING Hx and SMOKELESS TOB ACCO SCREENING 2005 HEPATITIS C SCREENING 2010 HIV ONE-TIME SCREENING (18-6 5 YEARS) 2010 COVID-19 VACCINE ( - 2023-2 5 season) 2024 HEPATITIS A VACCINES Aged Out No long er eligible based on patient's age to complete this topic HIB VACCINES Aged Out No longer eligi ble based on patient's age to complete this topic MENINGOCOCCAL VACCINES (ACWY) Aged Out No longer eligible based on patient's age to complete this topic MENINGOCOCCAL VACCINES (B) Aged Out N o longer eligible based on patient's age to complete this topic PNEUMOCOCCAL VACCINES (0-49 years) Aged Out No longer eligible based on patient's age to complete this topic Medical Devices Not on file Insurance [facility] [place] [id number] [place] [address] PPO EPO [address] [facility] [place] [facility] PPO EPO [facility] PPO [facility]PO Care Teams Prop And Scenery Maker Relationship Specialty Start Date End Date Fabiano Becker MD [address] [place] [address] PCP - General Family Medicine 03/16/25 Additional Source Comments The information contained in this document represents components of the legal health record. It is not the complete legal health record.[facility]
[2025-04-10 11:13] VITALS: BP 136/84; PULSE 92; O2SAT 95; BMI 32.8
--- NOTE | 2025-04-10 11:13 | A.OFFVIS_ITS ---
Vital Signs 04/10/25 11:13 Height 6 ft 3 in Weight 262 lb 6 oz BMI 32.8 BP 136/84 Blood Pressure Location Rt brachial Position Sitting Pulse 92 Pulse Source Pulse Oximeter Pulse Oximetry (%) 95 Oxygen Delivery Method Room Air Intake Visit Reasons: Review CT scan results Allergies No Known Allergies Allergy (Verified 04/10/25 11:15) HPI HPI Review CT scan results: Details: Yoan is a pleasant 34 year old male, never smoker, with underlying asthma since childhood. He was initially referred by PCP for chronic cough with abnormal CXR which revealed pulmonary reticular nodular pattern opacities which could be suggestive of sarcoidosis, hypersensitivity pneumonitis or TB per radiologist report. PCP sent for LGORIA levels, unremarkable and Tspot negative. Reviewed CT with Dr. Merrill, agreed findings are suggestive of sarcoidosis and was prescribed 50 mg prednisone QD x 1 month. He reported 50% improvement in cough however had significant difficulties tolerating prednisone with worsening depression and cognitive changes. Reviewed chest CT results after 1 month course of prednisone which revealed essentially stable findings, with some areas of improvement as well as some areas of progression. EBUS performed on 04/[address] Merrill and preliminary results are consistent with carcinoma. Today he presents to review results of biopsy. Of note, patient continues with cognitive issues and memory recall, denies headaches at this time. [facility], [facility] Medical History Chronic cough Asthma Sarcoidosis Rash and nonspecific skin eruption Fibroma Skin lesion of lower extremity Family History Father Colon polyps Social History Housing: House Alcohol intake: never Patient Tobacco Use Status: Former Tobacco user Tobacco use type: Cigar Years Smoked: on occasion. e-Cigarette/Vaping Use: Never Used service: No Current occupational status: employed Current occupation: [employer] Cognitive needs: No Hearing needs: No Vision needs: No Review of Systems Const Denies chills, Denies excessive sweating, Denies fever(s), Denies headache(s) and Denies night sweats Eyes Denies dry eyes, Denies irritation and Denies itchy eyes ENT Reports Normal hearing present, Denies headache(s), Denies nasal congestion, Denies nasal discharge, Denies post nasal drip and Denies sore throat Card Denies chest pain, Denies chest pain at rest, Denies chest pain with activity, Denies claudication, Denies leg edema, Denies dyspnea on exertion, Denies orthopnea and Denies paroxysmal nocturnal dyspnea Resp Denies change in phlegm color, Denies chest congestion, Reports cough, Denies hemoptysis, Denies excessive phlegm production, Denies pain on inspiration, Denies pain with cough, Denies dyspnea on exertion, Denies stridor and Denies wheezing Musc Denies myalgias Neuro Reports Normal hearing present and Denies headache(s) Psych Reports anxiety Endo Denies excessive sweating Freddy/Lymph Denies lymphadenopathy Aller/Immun Denies itchy eyes, Denies seasonal rhinorrhea and Denies wheezing Physical Exam Vital Signs: Last Vital Signs Pulse 92 04/10/25 11:13 BP 136/84 04/10/25 11:13 Pulse Ox 95 04/10/25 11:13 Oxygen Delivery Method Room Air 04/10/25 11:13 BMI result Body Mass Index 32.8 Const General: cooperative, healthy appearing, comfortable, no acute distress, well developed and alert Orientation/consciousness: patient oriented x3 Limitations: no limitations HEENT Head: Yes normal to inspection, Yes normocephalic and Yes atraumatic Ears: hearing grossly normal bilaterally and external ears normal Eyes General: appearance normal, both eyes and all related structures Eyelids: Yes eyelids normal Sclerae: sclerae normal EOM: EOMs intact bilaterally Neck Neck: Yes normal visual inspection and Yes no lymphadenopathy Lymphatic: no lymphadenopathy noted Chest Chest palpation & inspection: normal inspection of the chest Resp Effort & Inspection: normal respiratory effort, able to speak in complete sentences, no audible wheezes, no cough, no stridor, not tachypneic, no tripod positioning and no use of accessory muscles Auscultation: clear to auscultation bilaterally Cardio Jugular venous distension: no JVD Rate: regular rate Rhythm: regular rhythm Skin Other: warm, dry with widespread flat patches reddish brown on forearms Neuro General: patient oriented x3 Cranial nerves: Yes Normal hearing present Cognition (Neuro): normal cognition Gait exam (Neuro): Normal gait present Extrem General: Yes normal to inspection, Yes capillary refill normal, Yes no clubbing, cyanosis or edema and Yes no pedal edema Psych Appearance: grossly normal and well kempt Speech and movement: Normal speech and movement present and Clear speech present Affect: normal affect Attitude: cooperative Thought process: Normal thought process present Thought content: Normal thought content present Insight: Good insight present (Psych) Judgement: Good judgement present (Psych) Assessment & Plan Assessment & Plan (1) Lung cancer: Code(s): C34.90 - Malignant neoplasm of unspecified part of unspecified bronchus or lung Category: Medical (2) Mediastinal lymphadenopathy: Code(s): R59.0 - Localized enlarged lymph nodes Category: Medical (3) Asthma: Code(s): J45.909 - Unspecified asthma, uncomplicated Category: Medical (4) Cough: Code(s): R05.9 - Cough, unspecified Category: Medical Plan We had long discussion regarding results of biopsy which were discussed at the multidisciplinary conference this morning. Prelimary findings consistent with carcinoma, possibly primary lung cancer however awaiting final pathology. Oncology notified and patient is scheduled to see Dr. Heath next Sunday 04/15. Will order PET scan and given cognitive changes will order brain MRI in preparation for oncology appt. At this time, patient will taper prednisone by 10 mg per week down to 5 mg, he is currently on 30 mg. He is aware to call if symptoms change as he tapers doses. All questions were answered and patient is in agreement of plan. Patient does have an appt scheduled next week to follow up which he would like to keep at this time. Orders: Orders MR head/brain wo/w con Today C34.90 - Malignant neoplasm of unspecified part of unspecified bronchus or lung, R41.89 - Other symptoms and signs involving cognitive functions and awareness Coding Level of Care Code Est Pt Level 4 (76095) Complex EM visit Add On G2211 Diagnoses Lung cancer C34.90 Mediastinal lymphadenopathy R59.0 Asthma J45.909 Cough R05.9
== END 2025-04-10 11:50 | disposition home or self-care (01) ==
LOC: HO.HPSW 11:03
PROVIDERS: PCP Family Medicine; Visit Provider Nurse Practitioner Family
DX: C34.90 Malignant neoplasm of unspecified part of unspecified bronchus or lung (principal); R59.0 Localized enlarged lymph nodes; J45.909 Unspecified asthma, uncomplicated; R05.9 Cough, unspecified
CPT/HCPCS: 99214

== ENCOUNTER → 2025-04-15 08:16 | Outpatient (BNV) | payer BC, SELFPAY | PROVIDERS: Visit Provider Radiology Diagnostic Radiology | DX: R94.02 Abnormal brain scan (principal) | CPT/HCPCS: 70553 ==

== ENCOUNTER 2025-04-15 08:33 | Outpatient (REF) | payer BC, SELFPAY ==
--- NOTE | ~2025-04-15 | MR_ITS ---
EXAMINATION: MR BRAIN WITHOUT THEN WITH IV CONTRAST HISTORY: C34.90 - Malignant neoplasm of unspecified part of unspecified bronchus ... TECHNIQUE: Sagittal T1, and axial T1, FLAIR, T2, gradient echo, and diffusion weighted MR images of the brain were obtained. Subsequently, sagittal, axial, and coronal T1-weighted images were obtained after the administration of intravenous gadolinium. 10 mL Gadavist was administered. COMPARISON: Correlation is made with an unenhanced head CT dated 12/24/2021. FINDINGS: The pituitary is normal in size. The cerebellar tonsils are normally located. There are innumerable enhancing lesions scattered throughout the brain, many of which are cystic. Many of the lesions demonstrate increased T1 signal intensity and magnetic susceptibility artifact on gradient echo images, consistent with hemorrhage. Findings are consistent with metastatic disease. There is mild surrounding vasogenic edema without midline shift. There are no foci of restricted diffusion to suggest an acute infarct. Normal vascular flow voids are noted in the basilar and carotid arteries. The visualized paranasal sinuses are clear. MR/MR head/brain wo/w con IMPRESSION: Findings consistent with diffuse metastatic disease as described. Findings were communicated to Ruby Kurtz NP by secure text message on 04/15/2025 at 9:52 AM, and acknowledged as read at 9:57 AM. Electronically signed by: Bhaskar Malloy MD 04/15/2025 09:58 AM EDT
--- OUTSIDE RECORDS SUMMARY | 2025-04-15 08:45 | XMS_ITS | Clinical Summary ---
Author Organization [facility] Address [address] [facility] [address] [place] [address] Phone Care Team Providers Care Parking Attendant Name Role Phone Fabiano Becker MD Primary Care Provider Fabiano Becker MD Unavailable [phone] Allergies No known active allergies Medications No [...] Male 07/10/2024 9:35 AM EDT Sexual Orientation Straight 04/14/2025 9: 04 AM EDT Last Filed Vital Signs Vital [...] Care Team (Late st Contact Info) Description 04/24/2025 1:15 PM EDT Administrative Encounter Central Registration, [facility] at [address] [address] Patsy Arora MD [address] [place] [phone] [email or web address]. counts include 234 beds at the [facility] 04/24/2025 2:00 PM EDT Office Visit [facility], [facility] at [address] [address] Patsy Arora MD [address] [place] [phone] [email or web address]. counts include 234 beds at the [facility] 07/16/2025 2:00 PM EST Office Visit [facility] [address] [place] [address] Gwen Briceno MD [address] [place] [phone] [email or web address] Health Maintenance Due Date Last Done Comments Adult Td,Tdap Booster 1992 DEPRESSION SCREENING 2004 SMOKING Hx and SMOKELESS TOB ACCO SCREENING 2005 HEPATITIS C SCREENING 2010 HIV ONE-TIME SCREENING (18-6 5 YEARS) 2010 COVID-19 VACCINE (2023-2 5 season) 2024 HEPATITIS A VACCINES Aged [...] this topic Medical Devices Not on file Procedures Procedure Name Priority Date/Time Associated Diagnosis Comments OUTSIDE PATHOLOGY 04/01/2025 OUTSIDE PROCEDURE 04/01/2025 OUTSIDE LAB 01/27/2025 OUTSIDE PROCEDURE 01/21/2025 OUTSIDE IMAGING 01/19/2025 OUTSIDE IMAGING 01/19/2025 from Last 3 Months Results * Outside Procedure (04/01/2025) us Scanning Interface Provider PROCEDURE/MINOR SURG ICAL PERFORMABLES Final Result * Outside Pathology (04/01/2025) us Scanning Interface Provider PATHOLOGY ORDERABLES Final Result * Outside Lab (01/27/2025) us Scanning Interface Provider LAB BLOOD ORDERABLES Final Result * Outside Procedure (01/21/2025) us Scanning Interface Provider PROCEDURE/MINOR SURG ICAL PERFORMABLES Final Result * Outside Imaging Report Only (01/19/2025) us Scanning Interface Provider IMG XR CHEST Lisa l Result * Outside Imaging Report Only (01/19/2025) us Scanning Interface Provider IMG XR CHEST Lisa l Result from Last 3 Months Insurance [facility] PPO EPO [address] [place] [facility] [facility] [place] [facility] PPO EPO [facility] PPO EPO [facility] PPO EPO [facility] PPO EPO Care Teams Parking Attendant Relationship Specialty Start Date End Date Fabiano Becker MD [address] [place] [address] PCP - General Family Medicine 03/16/25 Fabiano Becker MD [address] [place] [address] Referring Physician Family Medicine 04/14/25 Additional Source Comments The information contained in this document represents components of the legal health record. It is not the complete legal health record.[facility]
== END 2025-04-15 08:34 | disposition home or self-care (01) ==
LOC: HO.MRI 08:33
PROVIDERS: Visit Provider Nurse Practitioner Family
DX: R41.89 Other symptoms and signs involving cognitive functions and awareness (principal); C34.90 Malignant neoplasm of unspecified part of unspecified bronchus or lung
CPT/HCPCS: 70553; A9585